=== PATIENT | female | born 1945 | race Hispanic/Latino ===

== ENCOUNTER 2018-02-20 02:33 | Inpatient (IN) | payer MEDICARE, OTHER ==
--- NOTE | 2018-02-20 02:59 | ED PDOC ---
Arrival/HPI - General Historian: Patient - History of Present Illness Symptom Onset: Gradual Symptom Course: Unchanged Activities at Onset: Light Context: Home - General Time Seen by Provider: 02/20/18 02:53 - History of Present Illness Narrative History of Present Illness (Text): 02/20/18 02:59 Flower Majano is a 73 year old female, whose past medical history includes hiatal hernia, gallstones, hypercholesterolemia, and asthma, who presents to the Emergency department complaining of abdominal pain. Patient states she has been experiencing epigastric abdominal pain radiating to her back since 20:00 yesterday. Patient reports associated nausea and vomiting. Patient denies any fever, chills, chest pain, shortness of breath, diarrhea, urinary symptoms, back pain, neck pain, headache, dizziness, or any other complaints. (Diomedes Perales) Past Medical History - Provider Review Nursing Documentation Reviewed: Yes - Infectious Disease Hx of Infectious Diseases: None - Tetanus Immunization Tetanus Immunization: Unknown - Cardiac Hx Pacemaker: No - Pulmonary Hx Respiratory Disorders: Yes Hx Asthma: Yes - Neurological Hx Paralysis: No - HEENT Hx HEENT Disorder: No - Renal Hx Renal Disorder: No - Endocrine/Metabolic Hx Endocrine Disorders: No - Hematological/Oncological Hx Blood Transfusions: No - Integumentary Hx Dermatological Disorder: No - Musculoskeletal/Rheumatological Hx Musculoskeletal Disorders: Yes - Gastrointestinal Hx Gastrointestinal Disorders: Yes (hiatal hernia ,cholelithiasis) - Genitourinary/Gynecological Hx Genitourinary Disorders: No - Psychiatric Hx Emotional Abuse: No Hx Physical Abuse: No Hx Substance Use: No - Past Surgical History Past Surgical History: Non-Contributing - Anesthesia Hx Anesthesia Reactions: No Hx Malignant Hyperthermia: No - Suicidal Assessment Feels Threatened In Home Enviroment: No Family/Social History - Physician Review Nursing Documentation Reviewed: Yes Family/Social History: Unknown Family HX Smoking Status: Never Smoked Hx Alcohol Use: No Hx Substance Use: No Hx Substance Use Treatment: No Allergies/Home Meds Allergies/Adverse Reactions: Allergies No Known Allergies Allergy (Verified 02/20/18 02:57) Home Medications: Home Meds Medication Instructions Recorded Confirmed Albuterol Sulfate [Proair Hfa] 2 puff PO Q6 PRN 01/26/14 02/20/18 Mirabegron [Myrbetriq] 50 mg PO QAM 07/14/16 02/20/18 Rosuvastatin Calcium [Crestor] 20 mg PO QPM 07/14/16 02/20/18 Review of Systems - Physician Review All systems were reviewed & negative as marked: Yes - Review of Systems Constitutional: Normal. absent: Fevers Eyes: Normal ENT: Normal Respiratory: Normal. absent: SOB, Cough Cardiovascular: Normal. absent: Chest Pain Gastrointestinal: Abdominal Pain, Nausea, Vomiting. absent: Diarrhea Genitourinary Female: Normal. absent: Dysuria, Frequency, Hematuria, Urine Output Changes Musculoskeletal: Normal. absent: Back Pain, Neck Pain Skin: Normal. absent: Rash Neurological: Normal. absent: Headache, Dizziness Endocrine: Normal Hemo/Lymphatic: Normal Psychiatric: Normal Physical Exam Vital Signs Reviewed: Yes Temperature: Afebrile Blood Pressure: Normal Pulse: Regular Respiratory Rate: Normal Appearance: Positive for: Well-Appearing, Non-Toxic, Comfortable Pain Distress: None Mental Status: Positive for: Alert and Oriented X 3 - Systems Exam Head: Present: Atraumatic, Normocephalic Pupils: Present: PERRL Extroacular Muscles: Present: EOMI Conjunctiva: Present: Normal Mouth: Present: Moist Mucous Membranes Neck: Present: Normal Range of Motion Respiratory/Chest: Present: Clear to Auscultation, Good Air Exchange. No: Respiratory Distress, Accessory Muscle Use Cardiovascular: Present: Regular Rate and Rhythm, Normal S1, S2. No: Murmurs Abdomen: Present: Tenderness (Epigastric tenderness). No: Distention, Peritoneal Signs Back: Present: Normal Inspection Upper Extremity: Present: Normal Inspection. No: Cyanosis, Edema Lower Extremity: Present: Normal Inspection. No: Edema Neurological: Present: GCS=15, CN II-XII Intact, Speech Normal Skin: Present: Warm, Dry, Normal Color. 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 Plan: -- EKG -- Labs, cardiac enzymes, amylase, lipase -- Urinalysis -- IV fluids -- Zofran -- Protonix -- Reassess and disposition Progress Notes: Reviewed EKG, NSR at [address] bpm[address] Non-specific ST/T wave changes. 02/20/18 06:54 Reviewed radiology, CT Abdomen and Pelvis shows: Lung bases: Unremarkable. No mass. No consolidation. Mediastinum: There is a hiatal hernia. ABDOMEN: Liver: Unremarkable. Gallbladder and bile ducts: There is cholelithiasis. No ductal dilation. Pancreas: Unremarkable. No ductal dilation. Spleen: There is accessory splenic tissue. Adrenals: Unremarkable. No mass. Kidneys and ureters: Unremarkable. No obstructing stones. No hydronephrosis. Stomach and bowel: Unremarkable. No obstruction. No mucosal thickening. PELVIS: Appendix: No findings to suggest acute appendicitis. Bladder: Unremarkable. No stones. Reproductive: Unremarkable as visualized. ABDOMEN and PELVIS: Intraperitoneal space: Unremarkable. No free air. No significant fluid collection. Bones/joints: No acute fracture. No dislocation. Soft tissues: Unremarkable. Vasculature: Unremarkable. No abdominal aortic aneurysm. Lymph nodes: Unremarkable. No enlarged lymph nodes. IMPRESSION: There is cholelithiasis. Clinical findings will determine the need for further evaluation with gallbladder ultrasound. If patient's symptoms persist and/or worsen, postcontrast CT imaging would be recommended. US Gallbladder ordered. (Diomedes Perales) - Lab Interpretations Lab Results: 02/20/18 03:36 02/20/18 03:36 Lab Results 02/20/18 03:36: Sodium 143, Potassium 3.8, Chloride 104, Carbon Dioxide 27, Anion Gap 15, BUN 22 H, Creatinine 0.6 L, Est GFR ( Amer) > 60, Est GFR ( Non-Af Amer) > 60, Random Glucose 133 H, Calcium 9.2, Total Bilirubin 0.8, AST 28, ALT 36, Alkaline Phosphatase 58, Lactate Dehydrogenase 448, Total Creatine Kinase 83, Troponin I < 0.01, Total Protein 7.2, Albumin 4.4, Globulin 2.8, Albumin/Globulin Ratio 1.5, Amylase 74, Lipase 60 02/20/18 03:36: Urine Color Yellow, Urine Appearance Sl cloudy, Urine pH 6.0, Ur Specific [place] >= 1.030, Urine Protein Trace H, Urine Glucose (UA) Negative , Urine Ketones Negative, Urine Blood Moderate H, Urine Nitrate Negative, Urine Bilirubin Negative, Urine Urobilinogen 0.2, Ur Leukocyte Esterase Negative, Urine RBC 2 - 5, Urine WBC 0 - 2, Ur Epithelial Cells 3 - 4, Urine Other Mucus 02/20/18 03:36: PT 11.9, INR 1.04, APTT 29.2 02/20/18 03:36: WBC 12.3 H D, RBC 5.10, Hgb 14.5, Hct 43.3, MCV 84.9, MCH 28.4, MCHC 33.5, RDW 13.3, Plt Count 221, MPV 10.2, Gran % 91.0 H, Lymph % (Auto) 5.7 L, [place] % (Auto) 2.3, Eos % (Auto) 0.9 L, Baso % (Auto) 0.1, Gran # 11.16 H, Lymph # (Auto) 0.7 L, [place] # (Auto) 0.3, Eos # (Auto) 0.1, Baso # (Auto) 0.01, Neutrophils % (Manual) 90 H, Band Neutrophils % 2, Lymphocytes % (Manual) 4 L, Monocytes % (Manual) 4, Platelet Evaluation Normal - RAD Interpretation Radiology Orders: 02/20/18 04:12 ABD & PELVIS W/O PO OR IV CONT [CT] Stat 02/20/18 06:57 GALL BLADDER [US] Stat - Medication Orders Current Medication Orders: Al Hydrox/Mg Hydrox/Simethicone (Maalox Plus 30 Ml) 30 ml PO Q8H PRN PRN Reason: Indigestion / Heartburn Atorvastatin Calcium (Lipitor) 80 mg PO 1800 [facility] Last Admin: 02/20/18 17:49 Dose: 80 mg Lactated Ringer's (Lactated Ringer's) 1,000 mls @ 110 mls/hr IV .Q9H6M [facility] Last Admin: 02/21/18 03:48 Dose: 110 mls/hr eMAR Start Stop Document 02/21/18 03:48 FC (Rec: 02/21/18 03:48 FC [id number]) Intravenous Solution Start Date 02/21/18 Start Time 03:48 End Date 02/21/18 Morphine Sulfate (Morphine) 4 mg IVP Q4H PRN PRN Reason: Pain, severe (8-10) Ondansetron HCl (Zofran Inj) 4 mg IVP [id number] MARIA M Oxycodone/Acetaminophen (Percocet 5/325 Mg Tab) 1 tab PO Q6H PRN PRN Reason: Pain, moderate (4-7) Stop: 02/23/18 16:16 Pantoprazole Sodium (Protonix Inj) 40 mg IVP DAILY MARIA M Sucralfate (Carafate Oral Susp) 1 gm PO 0600,1600 MARIA M Last Admin: 02/21/18 05:57 Dose: 1 gm Discontinued Medications Sodium Chloride (Sodium Chloride 0.9%) 1,000 mls @ 100 mls/hr IV .Q10H STA Stop: 02/20/18 13:02 Last Admin: 02/20/18 03:49 Dose: 100 mls/hr eMAR Start Stop Document 02/20/18 03:49 OCS (Rec: 02/20/18 03:50 [id number] Intravenous Solution Start Date 02/20/18 Start Time 03:49 Ondansetron HCl (Zofran Inj) 4 mg IVP STAT STA Stop: 02/20/18 03:04 Last Admin: 02/20/18 03:50 Dose: 4 mg IVP Administration Document 02/20/18 03:50 OCS (Rec: 02/20/18 03:50 [facility] [id number] Charges for Administration # of IVP Administrations 1 Oxycodone/Acetaminophen (Percocet 5/325 Mg Tab) 1 tab PO STAT STA Stop: 02/20/18 09:44 Last Admin: 02/20/18 11:38 Dose: 1 tab MAR Pain Assessment Document 02/20/18 11:38 OCS (Rec: 02/20/18 11:38 [id number] Pain Reassessment Is this a pain reassessment? No Sleep Is patient sleeping during reassessment? No Presence of Pain Presence of Pain Yes Pain Scale Used Pain Scale Used Numeric Location Pain Location Body Site Abdomen Description Description Constant Intensity of Pain at present 9 Re-Assess: MONA Pain Assessment Document 02/20/18 12:38 RV (Rec: 02/20/18 17:51 RV [id number]) Pain Reassessment Is this a pain reassessment? Yes Sleep Is patient sleeping during reassessment? No Presence of Pain Presence of Pain No Pantoprazole Sodium (Protonix Inj) 40 mg IVP ONCE STA Stop: 02/20/18 03:05 Last Admin: 02/20/18 03:50 Dose: 40 mg IVP Administration Document 02/20/18 03:50 OCS (Rec: 02/20/18 03:50 [id number] Charges for Administration # of IVP Administrations 1 Pneumococcal Polyvalent Vaccine (Pneumovax 23 Vaccine) 0.5 ml IM .ONCE ONE Stop: 02/20/18 21:26 Sucralfate (Carafate Oral Susp) 1 gm PO ONCE ONE Stop: 02/21/18 17:02 Sucralfate (Carafate Oral Susp) 1 gm PO STAT STA Stop: 02/20/18 17:05 Last Admin: 02/20/18 17:41 Dose: 1 gm - Scribe Statement The provider has reviewed the documentation as recorded by the Scribe - Scribe Statement Ebony Mckeon Provider Scribe Attestation: All medical record entries made by the Scribe were at my direction and personally dictated by me. I have reviewed the chart and agree that the record accurately reflects my personal performance of the history, physical exam, medical decision making, and the department course for this patient. I have also personally directed, reviewed, and agree with the discharge instructions and disposition. (Diomedes Perales) Disposition/Present on Arrival - Present on Arrival Any Indicators Present on Arrival: No History of DVT/PE: No History of Uncontrolled Diabetes: No Urinary Catheter: No History Surgical Site Infection Following: None - Disposition Have Diagnosis and Disposition been Completed?: Yes Disposition Time: 07:00 - Disposition Diagnosis: Intractable nausea and vomiting, Intractable epigastric abdominal pain, Biliary colic Disposition: HOSPITALIZED Patient Problems: Current Active Problems Problem Status Onset Biliary colic Acute Intractable epigastric abdominal pain Acute Intractable nausea and vomiting Acute Condition: STABLE
[2018-02-20 03:00] VITALS: BMI 25.0
[2018-02-20] MEDS ORDERED: Sodium Chloride 0.9% 1,000 ML IV STA (03:03)
[2018-02-20 04:02] LABS: URINE BILIRUBIN NEGATIVE (NEGATIVE); URINE BLOOD MODERATE (NEGATIVE); URINE GLUCOSE (UA) NEGATIVE (NEGATIVE); URINE LEUKOCYTE ESTERASE NEGATIVE Leu/uL (NEGATIVE); URINE PROTEIN TRACE mg/dL (<30 mg/dL); URINE UROBILINOGEN 0.2 E.U./dL (<1 E.U./dL)
[2018-02-20 04:04] LABS: INR 1.04 (0.93-1.08); PARTIAL THROMBOPLASTIN TIME 29.2 Seconds (25.1-36.5); PROTHROMBIN TIME 11.9 SECONDS (9.4-12.5)
[2018-02-20 04:05] LABS: ALB/GLOB RATIO 1.5 (1.1-1.8); ALBUMIN 4.4 g/dL (3.0-4.8); ALT/SGPT 36 U/L (7-56); AMYLASE 74 U/L (35-125); AST/SGOT 28 U/L (14-36); BLOOD UREA NITROGEN 22 mg/dL (7-21); CALCIUM 9.2 mg/dL (8.4-10.5); GFR AFRICAN-AMERICAN > 60; GFR NON-AFRICAN AMERICAN > 60; LIPASE 60 U/L (23-300); URINE APPEARANCE SL CLOUDY (CLEAR); URINE COLOR YELLOW (YELLOW)
[2018-02-20 04:16] LABS: TROPONIN I < 0.01 ng/mL
[2018-02-20 04:17] LABS: URINE WBC 0 - 2 /hpf (0-6)
[2018-02-20 04:39] LABS: BASO # 0.01 K/mm3 (0.0-2.0); BASO % 0.1 % (0.0-3.0); EOS # 0.1 (0.0-0.7); EOS % 0.9 % (1.5-5.0); GRAN # 11.16 (1.4-6.5); HEMOGLOBIN 14.5 g/dL (12.0-16.0); LYMPH # 0.7 (1.2-3.4); LYMPH % 5.7 % (22.0-35.0); MEAN CELL VOLUME 84.9 fl (80.0-105.0); MEAN CORPUSCULAR HEMOGLOBIN 28.4 pg (25.0-35.0); MEAN CORPUSCULAR HGB CONC 33.5 g/dl (31.0-37.0); MEAN PLATELET VOLUME 10.2 fl (7.0-11.0); MONO # 0.3 (0.1-0.6); MONO % 2.3 % (1.0-6.0); PLATELET COUNT 221 10^3/uL (120.0-450.0); RED CELL DISTRIBUTION WIDTH 13.3 % (11.5-14.5); WHITE BLOOD COUNT 12.3 10^3/ul (4.5-11.0)
[2018-02-20 06:05] LABS: BAND 2 % (0-2); LYMPHOCYTE 4 % (22.0-35.0); MONOCYTE 4 % (1.0-6.0); NEUTROPHIL 90 % (50.0-70.0); PLATELET ESTIMATE NORMAL (NORMAL)
--- NOTE | 2018-02-20 06:52 | CT ---
EXAM: CT Abdomen and Pelvis Without Intravenous Contrast CLINICAL HISTORY: 73 years old, female; Pain; Abdominal pain; Additional info: Abd pain TECHNIQUE: Axial computed tomography images of the abdomen and pelvis without intravenous contrast. All CT scans at this facility use one or more dose reduction techniques, viz.: automated exposure control; ma/kV adjustment per patient size (including targeted exams where dose is matched to indication; i.e. head); or iterative reconstruction technique. Coronal and sagittal reformatted images were created and reviewed. COMPARISON: US - RENAL 2017-02-25 09:15 FINDINGS: Lung bases: Unremarkable. No mass. No consolidation. Mediastinum: There is a hiatal hernia. ABDOMEN: Liver: Unremarkable. Gallbladder and bile ducts: There is cholelithiasis. No ductal dilation. Pancreas: Unremarkable. No ductal dilation. Spleen: There is accessory splenic tissue. Adrenals: Unremarkable. No mass. Kidneys and ureters: Unremarkable. No obstructing stones. No hydronephrosis. Stomach and bowel: Unremarkable. No obstruction. No mucosal thickening. PELVIS: Appendix: No findings to suggest acute appendicitis. Bladder: Unremarkable. No stones. Reproductive: Unremarkable as visualized. ABDOMEN and PELVIS: Intraperitoneal space: Unremarkable. No free air. No significant fluid collection. Bones/joints: No acute fracture. No dislocation. Soft tissues: Unremarkable. Vasculature: Unremarkable. No abdominal aortic aneurysm. Lymph nodes: Unremarkable. No enlarged lymph nodes. IMPRESSION: There is cholelithiasis. Clinical findings will determine the need for further evaluation with gallbladder ultrasound. If patient's symptoms persist and/or worsen, postcontrast CT imaging would be recommended.
--- NOTE | 2018-02-20 07:34 | ED PDOC ---
Physical Exam - Physical Exam Narrative Physical Exam (Text): 02/20/18 0830 General: alert/awake, GCS = 15, oriented x 3, resting in bed, uncomfortable, cooperative, interactive; NAD Head: NC/AT EYE: PERRLA, EOMI, sclera anicteric, no nystagmus, no photophobia; visual field intact b/l Facial: WNL Oral: uvula/tongue are midline, no exudate/lesions, no drooling/stridor, no dysphonia; intact dentitions NECK: intact ROM, no midline tenderness, no nuchal rigidity, no meningeal signs ; no step off Chest: CTA b/l, no w/r/r; no tachypenia, no accessory muscle use noted Cardiac: +S1, +S2, no m/r/r, no tachycardia Abdominal: +BS, soft/nd, + mid/right upper abd tenderness, well nourished patient; no masses/rebound/guarding/rigidity; no sánchez's sign, no mcburney's point tenderness Extremities: intact ROM, strength 5/5 grossly intact in all limbs, neurovasc intact b/l; + ambulatory; reflex +2/2; no pitting edema/swelling b/l; no Kiya' s sign b/l BACK: no step off, no midline tenderness, NO crepitus, no gross deformities noted; Intact ROM; no cvat b/l SKIN: cap refill < 1 sec, no ulcerations, no petechiae, no rashes NEURO: CNII-XII WNL, no facial asymmetries, no slurr speech, oriented x 3 NIH stroke scale ~ 0 Psych: normal insight, normal affect; follows command with ease Vital Signs Reviewed: Yes Vital Signs Temp Pulse Resp BP Pulse Ox 02/20/18 13:47 71 18 122/64 96 02/20/18 11:20 79 18 126/69 96 02/20/18 10:15 98.5 F 88 16 128/74 95 02/20/18 08:13 93 H 18 125/83 95 02/20/18 02:55 99.0 F 101 H 18 128/84 96 Temperature: Afebrile Blood Pressure: Normal Pulse: Tachycardic Respiratory Rate: Normal Appearance: Positive for: Well-Appearing, Non-Toxic, Uncomfortable. No: Comfortable, Ill-Appearing, Unkept Pain Distress: None Mental Status: Positive for: Alert and Oriented X 3 - Systems Exam Head: Present: Atraumatic, Normocephalic Medical Decision Making ED Course and Treatment: 02/20/18 07:00 Case signed out to me by Dr. Perales. Patient is a 73 year old female, whose past medical history includes hiatal hernia, gallstones, hypercholesterolemia, and asthma, who presents to the Emergency department complaining of abdominal pain. Currently awaiting ultrasound results and reevaluation. Dr. Perales felt patient should be admitted. 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 1200 surg team at bedside, evaluated patient, recommend po challenge with a meal and if pt successfully passed, pt can be discharged home; if pt has worse pain/ persistent vomiting, pt should be recommended for admission 02/20/18 14:24 On reevaluation, after a meal challenge, patient states she feels terrible, nauseous, and vomited, although no one can confirm patient vomiting. spoke to surgery team, made aware, will admit patient to their service; NO ABX recommended currently pt is made aware of her medical results agrees with admission Re-evaluation Time: 09:42 Reassessment Condition: Improving,but remains with symptoms - Lab Interpretations Lab Results: 02/20/18 03:36 02/20/18 03:36 Lab Results 02/20/18 03:36: Sodium 143, Potassium 3.8, Chloride 104, Carbon Dioxide 27, Anion Gap 15, BUN 22 H, Creatinine 0.6 L, Est GFR ( Amer) > 60, Est GFR ( Non-Af Amer) > 60, Random Glucose 133 H, Calcium 9.2, Total Bilirubin 0.8, AST 28, ALT 36, Alkaline Phosphatase 58, Lactate Dehydrogenase 448, Total Creatine Kinase 83, Troponin I < 0.01, Total Protein 7.2, Albumin 4.4, Globulin 2.8, Albumin/Globulin Ratio 1.5, Amylase 74, Lipase 60 02/20/18 03:36: Urine Color Yellow, Urine Appearance Sl cloudy, Urine pH 6.0, Ur Specific [place] >= 1.030, Urine Protein Trace H, Urine Glucose (UA) Negative , Urine Ketones Negative, Urine Blood Moderate H, Urine Nitrate Negative, Urine Bilirubin Negative, Urine Urobilinogen 0.2, Ur Leukocyte Esterase Negative, Urine RBC 2 - 5, Urine WBC 0 - 2, Ur Epithelial Cells 3 - 4, Urine Other Mucus 02/20/18 03:36: PT 11.9, INR 1.04, APTT 29.2 02/20/18 03:36: WBC 12.3 H D, RBC 5.10, Hgb 14.5, Hct 43.3, MCV 84.9, MCH 28.4, MCHC 33.5, RDW 13.3, Plt Count 221, MPV 10.2, Gran % 91.0 H, Lymph % (Auto) 5.7 L, [place] % (Auto) 2.3, Eos % (Auto) 0.9 L, Baso % (Auto) 0.1, Gran # 11.16 H, Lymph # (Auto) 0.7 L, [place] # (Auto) 0.3, Eos # (Auto) 0.1, Baso # (Auto) 0.01, Neutrophils % (Manual) 90 H, Band Neutrophils % 2, Lymphocytes % (Manual) 4 L, Monocytes % (Manual) 4, Platelet Evaluation Normal I have reviewed the lab results: Yes Interpretation: Abnormal lab values (+ hematuria?; mildly elevated) - RAD Interpretation Narrative RAD Interpretations (Text): 02/20/18 07:45 Ultrasound abdomen: Creator : ELÍAS JAQUEZ FINDINGS: Liver: The liver is mildly echogenic. This can be seen in the setting of fatty infiltration, hepatitis, cirrhosis, as well as other possibilities, please correlate clinically. Gallbladder: There is cholelithiasis. There is no Sánchez's sign. Common bile duct: The common bile duct measures 6 mm. Pancreas: The pancreas is not adequately evaluated due to obscuring bowel gas. Right kidney: Right kidney 11.1 cm. IMPRESSION: 1. There is cholelithiasis. There is no Sánchez's sign. 2. The liver is mildly echogenic. This can be seen in the setting of fatty infiltration, hepatitis, cirrhosis, as well as other possibilities, please correlate clinically. 02/20/18 09:43 CT Scan ABD PELVIS W/O PO OR IV CONT Exam Date: 02/20/18 This imaging exam was performed at [facility] EXAM: CT Abdomen and Pelvis Without Intravenous Contrast CLINICAL HISTORY: 73 years old, female; Pain; Abdominal pain; Additional info: Abd pain TECHNIQUE: Axial computed tomography images of the abdomen and pelvis without intravenous contrast. All CT scans at this facility use one or more dose reduction techniques, viz.: automated exposure control; ma/kV adjustment per patient size (including targeted exams where dose is matched to indication; i.e. head); or iterative reconstruction technique. Coronal and sagittal reformatted images were created and reviewed. COMPARISON: US - RENAL 2017-02-25 09:15 FINDINGS: Lung bases: Unremarkable. No mass. No consolidation. Mediastinum: There is a hiatal hernia. ABDOMEN: Liver: Unremarkable. Gallbladder and bile ducts: There is cholelithiasis. No ductal dilation. Pancreas: Unremarkable. No ductal dilation. Spleen: There is accessory splenic tissue. Adrenals: Unremarkable. No mass. Kidneys and ureters: Unremarkable. No obstructing stones. No hydronephrosis. Stomach and bowel: Unremarkable. No obstruction. No mucosal thickening. PELVIS: Appendix: No findings to suggest acute appendicitis. Bladder: Unremarkable. No stones. Reproductive: Unremarkable as visualized. ABDOMEN and PELVIS: Intraperitoneal space: Unremarkable. No free air. No significant fluid collection. Bones/joints: No acute fracture. No dislocation. Soft tissues: Unremarkable. Vasculature: Unremarkable. No abdominal aortic aneurysm. Lymph nodes: Unremarkable. No enlarged lymph nodes. IMPRESSION: There is cholelithiasis. Clinical findings will determine the need for further evaluation with gallbladder ultrasound. If patient's symptoms persist and/or worsen, postcontrast CT imaging would be recommended. 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 - Medication Orders Current Medication Orders: Discontinued Medications Sodium Chloride (Sodium Chloride 0.9%) 1,000 mls @ 100 mls/hr IV .Q10H STA Stop: 02/20/18 13:02 Last Admin: 02/20/18 03:49 Dose: 100 mls/hr eMAR Start Stop Document 02/20/18 03:49 OCS (Rec: 02/20/18 03:50 [facility] Intravenous Solution Start Date 02/20/18 Start Time 03:49 Ondansetron HCl (Zofran Inj) 4 mg IVP STAT STA Stop: 02/20/18 03:04 Last Admin: 02/20/18 03:50 Dose: 4 mg IVP Administration Document 02/20/18 03:50 OCS (Rec: 02/20/18 03:50 [id number] Charges for Administration # of IVP Administrations 1 Oxycodone/Acetaminophen (Percocet 5/325 Mg Tab) 1 tab PO STAT STA Stop: 02/20/18 09:44 Last Admin: 02/20/18 11:38 Dose: 1 tab MAR Pain Assessment Document 02/20/18 11:38 OCS (Rec: 02/20/18 11:38 [facility] Pain Reassessment Is this a pain reassessment? No Sleep Is patient sleeping during reassessment? No Presence of Pain Presence of Pain Yes Pain Scale Used Pain Scale Used Numeric Location Pain Location Body Site Abdomen Description Description Constant Intensity of Pain at present 9 Pantoprazole Sodium (Protonix Inj) 40 mg IVP ONCE STA Stop: 02/20/18 03:05 Last Admin: 02/20/18 03:50 Dose: 40 mg IVP Administration Document 02/20/18 03:50 OCS (Rec: 02/20/18 03:50 [facility] Charges for Administration # of IVP Administrations 1 - Scribe Statement The provider has reviewed the documentation as recorded by the Prashanth Dean Provider Scribe Attestation: All medical record entries made by the Scribe were at my direction and personally dictated by me. I have reviewed the chart and agree that the record accurately reflects my personal performance of the history, physical exam, medical decision making, and the department course for this patient. I have also personally directed, reviewed, and agree with the discharge instructions and disposition. Disposition/Present on Arrival - Present on Arrival Any Indicators Present on Arrival: No History of DVT/PE: No History of Uncontrolled Diabetes: No Urinary Catheter: No History of Decub. Ulcer: No History Surgical Site Infection Following: None - Disposition Have Diagnosis and Disposition been Completed?: Yes Diagnosis: Intractable nausea and vomiting, Intractable epigastric abdominal pain, Biliary colic Disposition: HOSPITALIZED Disposition Time: 14:35 Patient Plan: Admission Condition: STABLE Print Language: YI Referrals: Yanet Patel DO [Primary Care Provider] - Follow up with primary
--- NOTE | 2018-02-20 07:43 | US ---
EXAM: US Abdomen Limited, Right Upper Quadrant CLINICAL HISTORY: 73 years old, female; Pain; Abdominal pain; Generalized; Additional info: Abd pain TECHNIQUE: Real-time ultrasound of the right upper quadrant with image documentation. COMPARISON: US - RENAL 2017-02-25 09:15 FINDINGS: Liver: The liver is mildly echogenic. This can be seen in the setting of fatty infiltration, hepatitis, cirrhosis, as well as other possibilities, please correlate clinically. Gallbladder: There is cholelithiasis. There is no Sánchez's sign. Common bile duct: The common bile duct measures 6 mm. Pancreas: The pancreas is not adequately evaluated due to obscuring bowel gas. Right kidney: Right kidney 11.1 cm. IMPRESSION: 1. There is cholelithiasis. There is no Sánchez's sign. 2. The liver is mildly echogenic. This can be seen in the setting of fatty infiltration, hepatitis, cirrhosis, as well as other possibilities, please correlate clinically.
--- NOTE | 2018-02-20 09:28 | CARD ---
APPROVED REPORT EKG Measurement Heart [id number] <Conclusion> Normal sinus rhythm Possible Left atrial enlargement Borderline ECG
[2018-02-20] MEDS ORDERED: Oxycodone/Acetaminophen 5/325 mg Tab PO STA (09:43)
--- NOTE | 2018-02-20 12:11 | CP.PCM.CON ---
History of Present Illness - History of Present Illness History of Present Illness: Tonio Hassan PGY1 Surgery Consult Note for Dr. Esquivel Ms. Majano is a 73yo [place] female with a PMH of HLD, hiatal hernia, asthma and arthritis who presents with epigastric/RUQ pain that began last night around 8pm and worsened which led her to come to ED; patient also complained of 5 episodes of vomiting that was described as dark, and diarrhea. Translation was offered by her friend via phone. Patient states that she has similar pain usually after eating but denies symptoms of this severity or vomiting before. She states that she attends an adult day care center and that the food is not usually the healthiest. She denies fevers/chills, chest pain, shortness of breath, constipation or weight loss/gain. 12-pt ROS was reviewed and is otherwise unremarkable. Prior Endoscopies (2015) were significant for diffuse mild inflammation in gastric fundus, body and antrum and chronic gastritis on pathology; as well as 8mm sessile polyp, and internal hemorrhoids. In the ED, patient received protonix and zofran which significantly reduced the pain. When seen, the patient was comfortable and states that her pain has almost completely resolved, and that it's mainly associated with her food. The patient presented a card for a GI appointment with Dr. Garza for March 2018. Patient also states that she's traveling to [facility] on 03/25/18 and would prefer to not have surgery prior to that time. PMH: as above PSH: none Meds: Crestor ALL: NKDA SHx: denies smoking, ETOH, or drug use; goes to adult day care center ) Review of Systems - Review of Systems All systems: reviewed and no additional remarkable complaints except (as per HPI ) Past Patient History - Infectious Disease Hx of Infectious Diseases: None - Tetanus Immunizations Tetanus Immunization: Unknown - Past Medical History & Family History Past Medical History?: Yes Past Family History: Reviewed and not pertinent - Past Social History Smoking Status: Never Smoked Alcohol: None Drugs: Denies - CARDIAC Hx Hypercholesterolemia: Yes Hx Pacemaker: No - PULMONARY Hx Respiratory Disorders: Yes Hx Asthma: Yes - NEUROLOGICAL Hx Neurological Disorder: No Hx Paralysis: No - HEENT Hx HEENT Problems: No - RENAL Hx Chronic Kidney Disease: No - ENDOCRINE/METABOLIC Hx Endocrine Disorders: No - HEMATOLOGICAL/ONCOLOGICAL Hx Blood Transfusions: No - INTEGUMENTARY Hx Dermatological Problems: No - MUSCULOSKELETAL/RHEUMATOLOGICAL Hx Musculoskeletal Disorders: Yes Hx Arthritis: Yes - GASTROINTESTINAL Hx Gastrointestinal Disorders: Yes (hiatal hernia ,cholelithiasis) - GENITOURINARY/GYNECOLOGICAL Hx Genitourinary Disorders: No - PSYCHIATRIC Hx Emotional Abuse: No Hx Physical Abuse: No Hx Substance Use: No - SURGICAL HISTORY Hx Surgeries: No - ANESTHESIA Hx Anesthesia Reactions: No Hx Malignant Hyperthermia: No Meds Allergies/Adverse Reactions: Allergies Allergy/AdvReac Type Severity Reaction Status Date / Time No Known Allergies Allergy Verified 02/20/18 02:57 - Medications Medications: Current Medications Sodium Chloride (Sodium Chloride 0.9%) 1,000 mls @ 100 mls/hr IV .Q10H STA Stop: 02/20/18 13:02 Last Admin: 02/20/18 03:49 Dose: 100 mls/hr Physical Exam - Constitutional Appears: Well, Non-toxic, No Acute Distress - Head Exam Head Exam: NORMAL INSPECTION - Eye Exam Eye Exam: Normal appearance - ENT Exam ENT Exam: Mucous Membranes Moist - Neck Exam Neck exam: Positive for: Normal Inspection - Respiratory Exam Respiratory Exam: NORMAL BREATHING PATTERN. absent: Wheezes - Cardiovascular Exam Cardiovascular Exam: RRR, +S1, +S2 - GI/Abdominal Exam GI & Abdominal Exam: Normal Bowel Sounds, Soft, Tenderness (RLQ mild). absent: Distended, Guarding - Extremities Exam Extremities exam: Positive for: normal inspection - Back Exam Back exam: NORMAL INSPECTION - Neurological Exam Neurological exam: Alert - Psychiatric Exam Psychiatric exam: Normal Affect, Normal Mood - Skin Skin Exam: Normal Color Results - Vital Signs Recent Vital Signs: Last Vital Signs Temp 98.5 F 02/20/18 10:15 Pulse 79 02/20/18 11:20 Resp 18 02/20/18 11:20 BP 126/69 02/20/18 11:20 Pulse Ox 96 02/20/18 11:20 - Labs Result Diagrams: 02/20/18 03:36 02/20/18 03:36 Labs: Laboratory Results - last 24 hr 02/20/18 02/20/18 02/20/18 03:36 03:36 03:36 WBC 12.3 H D RBC 5.10 Hgb 14.5 Hct 43.3 MCV 84.9 MCH 28.4 MCHC 33.5 RDW 13.3 Plt Count 221 MPV 10.2 Gran % 91.0 H Lymph % (Auto) 5.7 L [place] % (Auto) 2.3 Eos % (Auto) 0.9 L Baso % (Auto) 0.1 Gran # 11.16 H Lymph # (Auto) 0.7 L [place] # (Auto) 0.3 Eos # (Auto) 0.1 Baso # (Auto) 0.01 Neutrophils % (Manual) 90 H Band Neutrophils % 2 Lymphocytes % (Manual) 4 L Monocytes % (Manual) 4 Platelet Evaluation Normal PT 11.9 INR 1.04 APTT 29.2 Sodium Potassium Chloride Carbon Dioxide Anion Gap BUN Creatinine Est GFR ( Amer) Est GFR (Non-Af Amer) Random Glucose Calcium Total Bilirubin AST ALT Alkaline Phosphatase Lactate Dehydrogenase Total Creatine Kinase Troponin I Total Protein Albumin Globulin Albumin/Globulin Ratio Amylase Lipase Urine Color Yellow Urine Appearance Sl cloudy Urine pH 6.0 Ur Specific [place] >= 1.030 Urine Protein Trace H Urine Glucose (UA) Negative Urine Ketones Negative Urine Blood Moderate H Urine Nitrate Negative Urine Bilirubin Negative Urine Urobilinogen 0.2 Ur Leukocyte Esterase Negative Urine RBC 2 - 5 Urine WBC 0 - 2 Ur Epithelial Cells 3 - 4 Urine Other Mucus 02/20/18 03:36 WBC RBC Hgb Hct MCV MCH MCHC RDW Plt Count MPV Gran % Lymph % (Auto) [place] % (Auto) Eos % (Auto) Baso % (Auto) Gran # Lymph # (Auto) [place] # (Auto) Eos # (Auto) Baso # (Auto) Neutrophils % (Manual) Band Neutrophils % Lymphocytes % (Manual) Monocytes % (Manual) Platelet Evaluation PT INR APTT Sodium 143 Potassium 3.8 Chloride 104 Carbon Dioxide 27 Anion Gap 15 BUN 22 H Creatinine 0.6 L Est GFR ( Amer) > 60 Est GFR (Non-Af Amer) > 60 Random Glucose 133 H Calcium 9.2 Total Bilirubin 0.8 AST 28 ALT 36 Alkaline Phosphatase 58 Lactate Dehydrogenase 448 Total Creatine Kinase 83 Troponin I < 0.01 Total Protein 7.2 Albumin 4.4 Globulin 2.8 Albumin/Globulin Ratio 1.5 Amylase 74 Lipase 60 Urine Color Urine Appearance Urine pH Ur Specific [place] Urine Protein Urine Glucose (UA) Urine Ketones Urine Blood Urine Nitrate Urine Bilirubin Urine Urobilinogen Ur Leukocyte Esterase Urine RBC Urine WBC Ur Epithelial Cells Urine Other Assessment & Plan - Assessment and Plan (Free Text) Assessment: 73yo [place] female with a PMH of HLD, hiatal hernia, asthma and arthritis who presents with epigastric/RUQ pain associated with vomiting. CT abd and US showed cholelithiasis, fatty liver but no barajas's sign Plan: advance diet and check if tolerating zofran prn cont ptx, and pt should continue them as outpatient patient is cleared for d/c if tolerating diet patient should follow up with Dr. Esquivel for elective cholecystectomy please avoid fatty foods please follow up with PMD on d/c Case was discussed and reviewed with Dr. Esquivel
[2018-02-20] MEDS ORDERED: Morphine 4 mg/ml ISec IVP PRN (16:01)
[2018-02-20] MEDS ORDERED: Oxycodone/Acetaminophen 5/325 mg Tab PO PRN (16:01)
[2018-02-20] MEDS: Lactated Ringer's 1,000 ML IV SCH (17:00)
[2018-02-20] MEDS ORDERED: Sucralfate 1 gm/10 ml Oral Susp UD PO STA (17:04)
--- NOTE | 2018-02-20 17:17 | CP.PCM.HP ---
<Pinky Mullins - Last Filed: 02/20/18 18:19> History of Present Illness - History of Present Illness History of Present Illness: Pinky Mullins DO PGY1 - IM H&P for Dr. Nichols CC: Abdominal pain, nausea, vomiting for the past day HPI: 73yo [place] female with a PMH of gastritis, HLD, hiatal hernia, asthma and arthritis who presents with abdominal pain, nausea, and vomiting that started last night, and progressively worsened which led her to come to the ER. She also admits to two episodes of non-bloody diarrhea. She had several episodes of vomiting, that first brought up the food she had previously eaten, then "yellow sour stuff" then "dark bitter stuff". She also reports some episodes of vomiting since presenting to the ER, though unwitnessed. Her abdominal pain is intermittent, diffuse, mostly in RUQ, happens randomly, not specifically associated with meals, radiates around the side and to the back. She has had this same pain for many years. She also admits to early satiety, bloating, frequent belching, sour stomach, "sour" reflux. She denies heartburn. She also denies fever, chills, constipation, chest pain, shortness of breath, difficulty swallowing, weight changes. Remained of 12 point ROS was obtained as was negative. Currently, she denies any pain, nausea, or vomiting. She reports that she has no appetite, despite not eating anything all day. PMH: gastritis, HLD, hiatal hernia, asthma and arthritis PSH: none Meds: Crestor; was previously prescribed a PPI and Myrbetric but decided that since it was the summer, she should take a break from her medications ALL: NKDA SHx: denies smoking, ETOH, or drug use; goes to adult day care center ([phone]) Present on Admission - Present on Admission Any Indicators Present on Admission: No Past Patient History - Infectious Disease Hx of Infectious Diseases: None - Tetanus Immunizations Tetanus Immunization: Unknown - Past Medical History & Family History Past Medical History?: Yes Past Family History: Reviewed and not pertinent - Past Social History Smoking Status: Never Smoked Alcohol: None Drugs: Denies - CARDIAC Hx Hypercholesterolemia: Yes Hx Pacemaker: No - PULMONARY Hx Respiratory Disorders: Yes Hx Asthma: Yes - NEUROLOGICAL Hx Neurological Disorder: No Hx Paralysis: No - HEENT Hx HEENT Problems: No - RENAL Hx Chronic Kidney Disease: No - ENDOCRINE/METABOLIC Hx Endocrine Disorders: No - HEMATOLOGICAL/ONCOLOGICAL Hx Blood Transfusions: No - INTEGUMENTARY Hx Dermatological Problems: No - MUSCULOSKELETAL/RHEUMATOLOGICAL Hx Musculoskeletal Disorders: Yes Hx Arthritis: Yes - GASTROINTESTINAL Hx Gastrointestinal Disorders: Yes (hiatal hernia ,cholelithiasis) - GENITOURINARY/GYNECOLOGICAL Hx Genitourinary Disorders: No - PSYCHIATRIC Hx Emotional Abuse: No Hx Physical Abuse: No Hx Substance Use: No - SURGICAL HISTORY Hx Surgeries: No - ANESTHESIA Hx Anesthesia Reactions: No Hx Malignant Hyperthermia: No Meds Allergies/Adverse Reactions: Allergies Allergy/AdvReac Type Severity Reaction Status Date / Time UNKNOWN ANTIBIOTICS Allergy REDNESS Uncoded 02/23/18 13:55 Physical Exam - Constitutional Appears: Non-toxic, No Acute Distress - Head Exam Head Exam: ATRAUMATIC, NORMOCEPHALIC - Eye Exam Eye Exam: EOMI, Normal appearance, PERRL - ENT Exam ENT Exam: Mucous Membranes Moist - Neck Exam Neck exam: Positive for: Normal Inspection - Respiratory Exam Respiratory Exam: Clear to Auscultation Bilateral, NORMAL BREATHING PATTERN - Cardiovascular Exam Cardiovascular Exam: REGULAR RHYTHM, +S1, +S2. absent: Bradycardia, Tachycardia - GI/Abdominal Exam GI & Abdominal Exam: Normal Bowel Sounds, Soft. absent: Distended, Firm, Guarding, Hernia, Rebound, Rigid, Tenderness Additional comments: Minimal tenderness to very deep palpation in RUQ - Extremities Exam Extremities exam: Negative for: calf tenderness, pedal edema - Back Exam Back exam: absent: CVA tenderness (L), CVA tenderness (R) - Neurological Exam Neurological exam: Alert, CN II-XII Intact, Oriented x3 - Psychiatric Exam Psychiatric exam: Normal Affect, Normal Mood - Skin Skin Exam: Dry, Intact, Normal Color Results - Vital Signs Recent Vital Signs: Last Vital Signs Temp 98.5 F 02/20/18 16:15 Pulse 68 02/20/18 16:15 Resp 18 02/20/18 16:15 BP 118/61 02/20/18 16:15 Pulse Ox 96 02/20/18 16:15 - Labs Result Diagrams: 02/20/18 03:36 02/20/18 03:36 Assessment & Plan - Assessment and Plan (Free Text) Assessment: 73 yo F with PMH of gastritis, HLD, hiatal hernia, asthma and arthritis who presents with abdominal pain, nausea, and vomiting. Likely secondary to symptomatic cholelithiasis vs gastritis. Abdominal pain, nausea, and vomiting - Likely 2/2 symptomatic cholelithiasis vs gastritis - CT scan and abdominal US shows cholelithiasis, without cholecystitis - Prior endoscopy report (2016) shows diffuse gastritis without ulceration; biopsy showed mild chronic gastritis - Patient has had intermittent RUQ abdominal pain, characteristic of symptomatic cholelithiasis, for many years - Clear liquid diet - Protonix 40mg IV daily - Carafate BID - Maalox Q8 PRN for indigestion - Pain control - Antiemetics for nausea - Patient was seen by surgery in the ER, who advised cholecystectomy tomorrow; patient will be NPO after midnight h/o HLD - Resume home crestor DVT Ppx: SCDs Patient seen and case discussed with attending Dr. Nichols <Renetta Nichols - Last Filed: 02/25/18 16:10> Results - Vital Signs Recent Vital Signs: Last Vital Signs Temp 98.7 F 02/23/18 06:00 Pulse 88 02/23/18 06:00 Resp 20 02/23/18 06:00 BP 131/88 02/23/18 06:00 Pulse Ox 95 02/23/18 06:00 - Labs Result Diagrams: 02/22/18 08:10 02/23/18 09:30 Attending/Attestation - Attestation I have personally seen and examined this patient.: Yes I have fully participated in the care of the patient.: Yes I have reviewed all pertinent clinical information: Yes Notes (Text): 02/25/18 16:08 Medical record note made by the resident after discussion with my direction and input after the patient was personally seen and examined by me. I have reviewed the chart and agree that the record accurately reflects by personal performance of the history, physical exam, data review, and medical decision-making, in the course for the patient. I have also personally directed the plan of care. 73 years old Female with PMH of Galls tone,hyperlipidemia,asthma is admitted with biliary colic, USG galls tone, there is evidence of no cholecystitis, We will start patient on clear liquid diet, we will consult surgery, if recurrent pain, will need inpatient cholecystectomy. Management plan was discussed in detail with patient. Education was provided.
[2018-02-20] MEDS ORDERED: Non Formulary Medication (Rosuvastatin Calcium [Crestor] 20 MG) PO SCH (18:00)
[2018-02-20] MEDS ORDERED: Alum-Mag Hydrox-Simethicone Susp (30 mL) PO PRN (18:18)
[2018-02-20] MEDS ORDERED: Pneumococcal 23-Valent Vaccine IM ONE (21:25)
[2018-02-21] MEDS: Lactated Ringer's 1,000 ML IV SCH ×4 (03:48→19:35)
[2018-02-21] MEDS: Sucralfate 1 gm/10 ml Oral Susp UD PO SCH ×2 (05:57→18:30)
[2018-02-21 06:29] LABS: BASO # 0.01 K/mm3 (0.0-2.0); BASO % 0.2 % (0.0-3.0); EOS # 0.1 (0.0-0.7); EOS % 1.9 % (1.5-5.0); GRAN # 2.23 (1.4-6.5); GRAN % 46.2 % (50.0-68.0); HEMOGLOBIN 13.4 g/dL (12.0-16.0); LYMPH # 2.1 (1.2-3.4); LYMPH % 43.6 % (22.0-35.0); MEAN CELL VOLUME 86.2 fl (80.0-105.0); MEAN CORPUSCULAR HEMOGLOBIN 28.5 pg (25.0-35.0); MEAN PLATELET VOLUME 10.1 fl (7.0-11.0); MONO # 0.4 (0.1-0.6); MONO % 8.1 % (1.0-6.0); RBC 4.71 10^6/uL (3.5-6.1); RED CELL DISTRIBUTION WIDTH 13.8 % (11.5-14.5); WHITE BLOOD COUNT 4.8 10^3/ul (4.5-11.0)
[2018-02-21 07:04] LABS: ALB/GLOB RATIO 1.3 (1.1-1.8); ALBUMIN 3.6 g/dL (3.0-4.8); ALT/SGPT 31 U/L (7-56); AST/SGOT 21 U/L (14-36); BLOOD UREA NITROGEN 8 mg/dL (7-21); CALCIUM 8.9 mg/dL (8.4-10.5); GFR AFRICAN-AMERICAN > 60; GFR NON-AFRICAN AMERICAN > 60
--- NOTE | 2018-02-21 07:41 | CP.PCM.PN ---
Subjective - Date & Time of Evaluation Date of Evaluation: 02/21/18 Time of Evaluation: 07:37 - Subjective Subjective: Medicine Progress note Patient seen and examined at bedside. Afebrile overnight. No acute events. Currently NPO. No new complaints at this time. Plan for OR today w/ surgery team. Objective - Vital Signs/Intake and Output Vital Signs (last 24 hours): Temp Pulse Resp BP Pulse Ox 98.5 F 64 18 118/61 93 L 02/20/18 20:51 02/20/18 20:51 02/20/18 20:51 02/20/18 20:51 02/20/18 18:00 Intake and Output: 02/21/18 02/21/18 06:59 18:59 Intake Total 1320 Output Total 100 Balance 1220 - Medications Medications: Current Medications Al Hydrox/Mg Hydrox/Simethicone (Maalox Plus 30 Ml) 30 ml PO Q8H PRN PRN Reason: Indigestion / Heartburn Atorvastatin Calcium (Lipitor) 80 mg PO 1800 [facility] Last Admin: 02/20/18 17:49 Dose: 80 mg Lactated Ringer's (Lactated Ringer's) 1,000 mls @ 110 mls/hr IV .Q9H6M [facility] Last Admin: 02/21/18 03:48 Dose: 110 mls/hr Morphine Sulfate (Morphine) 4 mg IVP Q4H PRN PRN Reason: Pain, severe (8-10) Ondansetron HCl (Zofran Inj) 4 mg IVP [id number] [facility] Last Admin: 02/21/18 07:08 Dose: 4 mg Oxycodone/Acetaminophen (Percocet 5/325 Mg Tab) 1 tab PO Q6H PRN PRN Reason: Pain, moderate (4-7) Stop: 02/23/18 16:16 Pantoprazole Sodium (Protonix Inj) 40 mg IVP DAILY [facility] Sucralfate (Carafate Oral Susp) 1 gm PO 0600,1600 [facility] Last Admin: 02/21/18 05:57 Dose: 1 gm - Labs Labs: 02/21/18 06:00 02/21/18 06:00 PT 11.9 SECONDS (9.4-12.5) 02/20/18 03:36 INR 1.04 (0.93-1.08) 02/20/18 03:36 APTT 29.2 Seconds (25.1-36.5) 02/20/18 03:36 - Constitutional Appears: Non-toxic, No Acute Distress - Head Exam Head Exam: ATRAUMATIC - Eye Exam Eye Exam: EOMI. absent: Scleral icterus - ENT Exam ENT Exam: Mucous Membranes Moist - Respiratory Exam Respiratory Exam: NORMAL BREATHING PATTERN. absent: Accessory Muscle Use, Chest Wall Tenderness, Rales, Rhonchi, Wheezes, Respiratory Distress - Cardiovascular Exam Cardiovascular Exam: +S1, +S2. absent: Bradycardia, Tachycardia - GI/Abdominal Exam GI & Abdominal Exam: Soft, Tenderness (Tender to deep palpation in RUQ). absent : Distended, Firm, Guarding, Rigid - Extremities Exam Extremities Exam: absent: Calf Tenderness - Neurological Exam Neurological Exam: Alert, Awake, Oriented x3 - Psychiatric Exam Psychiatric exam: Normal Affect - Skin Skin Exam: Intact, Warm Assessment and Plan - Assessment and Plan (Free Text) Assessment: 73F pmhx of gastritis, HLD, hiatal hernia, asthma and arthritis who presents with symptomatic cholelithiasis and mild luekocytosis Plan: Symptomatic cholelithiasis - CT scan and abdominal US shows cholelithiasis, without cholecystitis - NPO - plan for cholecystectomy today by surgery team - cleared for OR from medical stand point - pain control PRN - IVF hx of Gastritis - 2015 endoscopy report shows diffuse gastritis w/o ulceration. Path: mild chronic gastritis - Protonix IV BID - Carafate BID - malox PRN - anti-emetic PRN hx of HLD - Resume home crestor hx of Asthma - resume home inhalers - duonebs q4 MARIA M PPX DVT: SCDs discussed w/ Dr. Jhon Colunga PGY1
[2018-02-21] MEDS ORDERED: Albuterol-Ipratrop 3 mg / 0.5 (3 ml) UD IH PRN (07:43)
[2018-02-21] MEDS: MIRABEGRON 50 MG PO SCH (09:17)
--- NOTE | 2018-02-21 10:17 | RAD ---
HISTORY: pre-op evaluation, epigastric pain COMPARISON: 10/15/2017 FINDINGS: LUNGS: No active pulmonary disease. PLEURA: No significant pleural effusion identified, no pneumothorax apparent. CARDIOVASCULAR: Normal. OSSEOUS STRUCTURES: No significant abnormalities. VISUALIZED UPPER ABDOMEN: Normal. OTHER FINDINGS: None. IMPRESSION: No active disease.
[2018-02-21] MEDS ORDERED: Bupivacaine 0.5% Inj(30mL) ONE (10:29)
[2018-02-21] MEDS ORDERED: Albuterol-Ipratrop 3 mg / 0.5 (3 ml) UD IH STA (10:32)
[2018-02-21] MEDS ORDERED: Succinylcholine 200 mg/10 ml Inj IV ONE (13:40)
[2018-02-21] MEDS ORDERED: Propofol 10 mg/ml Inj (20 ML) ONE (13:40)
[2018-02-21] MEDS ORDERED: Midazolam 2 MG/2 ML VIAL ONE (13:40)
[2018-02-21] MEDS ORDERED: Rocuronium 10 mg/ml (5 ml) ONE (13:40)
[2018-02-21] MEDS ORDERED: ePHEDrine 50 mg/ml Inj ONE (13:59)
[2018-02-21] MEDS ORDERED: Neostigmine Methylsulfate 3mg/3ml Syringe IV ONE (14:46)
[2018-02-21] MEDS ORDERED: Glycopyrrolate 0.2 mg/ml (2ml vial) ONE (14:47)
--- NOTE | 2018-02-21 15:16 | PCM.SURG1 ---
Surgeon's Initial Post Op Note - Surgeon's Notes Surgeon: Dr. Esquivel Adobe Maker: Megha Maldonado, PGY2. Bailey Mckinney PGY1 Type of Anesthesia: General Endo Pre-Operative Diagnosis: symptomatic cholelithiasis Operative Findings: normal anatomy, fibrous tissue around the gallbladder, see full operative report Post-Operative Diagnosis: same Operation Performed: laparoscopic cholecystectomy Specimen/Specimens Removed: gallbladder Estimated Blood Loss: EBL {In ML}: 5 Blood Products Given: N/A Drains Used: No Drains Post-Op Condition: Fair Date of Surgery/Procedure: 02/21/18 Time of Surgery/Procedure: 13:45
[2018-02-21] MEDS ORDERED: Morphine 4 mg/ml ISec IVP PRN (15:21)
[2018-02-21] MEDS ORDERED: Morphine 2 mg/ml ISec IVP PRN (15:28)
[2018-02-21] MEDS ORDERED: Lactated Ringer's 1,000 ML IV SCH (15:30)
[2018-02-21] MEDS ORDERED: Morphine 2 mg/2 mL syringe ONE ×4 (15:44→16:37)
[2018-02-21] MEDS ORDERED: Morphine 2 mg/2 mL syringe IVP ONE ×4 (15:44→16:37)
[2018-02-21] MEDS ORDERED: Sucralfate 1 gm/10 ml Oral Susp UD PO ONE (17:01)
[2018-02-22] MEDS: Lactated Ringer's 1,000 ML IV SCH (05:14)
[2018-02-22] MEDS: Sucralfate 1 gm/10 ml Oral Susp UD PO SCH ×2 (05:15→17:49)
[2018-02-22 08:24] LABS: BASO # 0.01 K/mm3 (0.0-2.0); BASO % 0.1 % (0.0-3.0); EOS % 0.6 % (1.5-5.0); GRAN # 4.5 (1.4-6.5); GRAN % 63.7 % (50.0-68.0); LYMPH % 28.1 % (22.0-35.0); MEAN CORPUSCULAR HEMOGLOBIN 28.3 pg (25.0-35.0); MEAN CORPUSCULAR HGB CONC 33.2 g/dl (31.0-37.0); MEAN PLATELET VOLUME 9.6 fl (7.0-11.0); MONO # 0.5 (0.1-0.6); MONO % 7.5 % (1.0-6.0); RBC 4.6 10^6/uL (3.5-6.1); RED CELL DISTRIBUTION WIDTH 13.5 % (11.5-14.5); WHITE BLOOD COUNT 7.1 10^3/ul (4.5-11.0)
--- NOTE | 2018-02-22 08:26 | CP.PCM.PN ---
Subjective - Date & Time of Evaluation Date of Evaluation: 02/22/18 Time of Evaluation: 08:24 - Subjective Subjective: General surgery progress note for Dr. Rosario Mckinney, PGY-1 Pt S & E at bedside at 0700 Pt reports some abdominal pain over surgical incision sites, right shoulder pain. Has eaten a little, but reports poor appetite. Denies N & V. No acute events overnight as per nursing. Objective - Vital Signs/Intake and Output Vital Signs (last 24 hours): Temp Pulse Resp BP Pulse Ox 97.2 F L 82 199 H 125/74 96 02/21/18 17:00 02/21/18 17:00 02/21/18 17:00 02/21/18 17:00 02/21/18 17:00 Intake and Output: 02/22/18 02/22/18 06:59 18:59 Intake Total 180 Balance 180 - Medications Medications: Current Medications Al Hydrox/Mg Hydrox/Simethicone (Maalox Plus 30 Ml) 30 ml PO Q8H PRN PRN Reason: Indigestion / Heartburn Albuterol/Ipratropium (Duoneb 3 Mg/0.5 Mg (3 Ml) Ud) 3 ml IH [id number] PRN PRN Reason: Shortness of Breath Atorvastatin Calcium (Lipitor) 80 mg PO 1800 [facility] Last Admin: 02/21/18 18:30 Dose: 80 mg Metoclopramide HCl (Reglan) 10 mg IV ONCE PRN PRN Reason: Nausea/Vomiting Mirabegron [ Myrbetriq] 50 Mg) ( Home Med) 50 mg PO QAM [facility] Last Admin: 02/21/18 09:17 Dose: Not Given Ondansetron HCl (Zofran Inj) 4 mg IVP [id number] [facility] Last Admin: 02/22/18 02:35 Dose: Not Given Oxycodone/Acetaminophen (Percocet 5/325 Mg Tab) 1 tab PO Q6H PRN PRN Reason: Pain, moderate (4-7) Stop: 02/23/18 16:16 Pantoprazole Sodium (Protonix Inj) 40 mg IVP DAILY [facility] Last Admin: 02/21/18 09:17 Dose: 40 mg Sucralfate (Carafate Oral Susp) 1 gm PO 0600,1600 [facility] Last Admin: 02/22/18 05:15 Dose: 1 gm - Labs Labs: 02/21/18 06:00 02/21/18 06:00 PT 11.9 SECONDS (9.4-12.5) 02/20/18 03:36 INR 1.04 (0.93-1.08) 02/20/18 03:36 APTT 29.2 Seconds (25.1-36.5) 02/20/18 03:36 - Constitutional Appears: Non-toxic, No Acute Distress - Head Exam Head Exam: ATRAUMATIC, NORMAL INSPECTION, NORMOCEPHALIC - Eye Exam Eye Exam: EOMI, Normal appearance - ENT Exam ENT Exam: Mucous Membranes Moist, Normal Exam - Neck Exam Neck Exam: Full ROM, Normal Inspection - Respiratory Exam Respiratory Exam: NORMAL BREATHING PATTERN - Cardiovascular Exam Cardiovascular Exam: REGULAR RHYTHM, +S1, +S2 - GI/Abdominal Exam GI & Abdominal Exam: Soft, Tenderness (over surgical incision sites). absent: Distended, Firm, Guarding, Rigid Additional comments: surgical sites with glue in place, no drainage or erythema noted - Extremities Exam Extremities Exam: Normal Inspection - Neurological Exam Neurological Exam: Alert, Awake, CN II-XII Intact, Oriented x3 - Psychiatric Exam Psychiatric exam: Normal Affect, Normal Mood - Skin Skin Exam: Dry, Intact, Normal Color, Warm Assessment and Plan - Assessment and Plan (Free Text) Assessment: 73F POD#1 s/p lap marleen Plan: OOBTC PT Pain control Anti-emetic PRN Cont reg diet Encourage IS use- please place at bedside with instructions on use as per respiratory Further mgmt as per primary team Will SILVA attending Faye, PGY-1
[2018-02-22 08:33] LABS: ALB/GLOB RATIO 1.4 (1.1-1.8); ALBUMIN 3.6 g/dL (3.0-4.8); ALT/SGPT 121 U/L (7-56); AST/SGOT 109 U/L (14-36); BLOOD UREA NITROGEN 6 mg/dL (7-21); CALCIUM 9.1 mg/dL (8.4-10.5); GFR AFRICAN-AMERICAN > 60; GFR NON-AFRICAN AMERICAN > 60
--- NOTE | 2018-02-22 09:37 | CP.PCM.PN ---
Subjective - Date & Time of Evaluation Date of Evaluation: 02/22/18 Time of Evaluation: 06:15 - Subjective Subjective: Patient seen and examined at bedside stating her pain in her abdomen has improved since the surgery. Denies shortness of breath, fevers, chills, cough, nausea, vomiting, diarrhea, headache, abdominal pain. Objective - Vital Signs/Intake and Output Vital Signs (last 24 hours): Temp Pulse Resp BP Pulse Ox 97.2 F L 82 199 H 125/74 96 02/21/18 17:00 02/21/18 17:00 02/21/18 17:00 02/21/18 17:00 02/21/18 17:00 Intake and Output: 02/22/18 02/22/18 06:59 18:59 Intake Total 180 Balance 180 - Medications Medications: Current Medications Al Hydrox/Mg Hydrox/Simethicone (Maalox Plus 30 Ml) 30 ml PO Q8H PRN PRN Reason: Indigestion / Heartburn Albuterol/Ipratropium (Duoneb 3 Mg/0.5 Mg (3 Ml) Ud) 3 ml IH [id number] PRN PRN Reason: Shortness of Breath Atorvastatin Calcium (Lipitor) 80 mg PO 1800 [facility] Last Admin: 02/21/18 18:30 Dose: 80 mg Metoclopramide HCl (Reglan) 10 mg IV ONCE PRN PRN Reason: Nausea/Vomiting Mirabegron [ Myrbetriq] 50 Mg) ( Home Med) 50 mg PO QAM [facility] Last Admin: 02/21/18 09:17 Dose: Not Given Ondansetron HCl (Zofran Inj) 4 mg IVP [id number] [facility] Last Admin: 02/22/18 02:35 Dose: Not Given Oxycodone/Acetaminophen (Percocet 5/325 Mg Tab) 1 tab PO Q6H PRN PRN Reason: Pain, moderate (4-7) Stop: 02/23/18 16:16 Pantoprazole Sodium (Protonix Inj) 40 mg IVP DAILY [facility] Last Admin: 02/21/18 09:17 Dose: 40 mg Sucralfate (Carafate Oral Susp) 1 gm PO 0600,1600 [facility] Last Admin: 02/22/18 05:15 Dose: 1 gm - Labs Labs: 02/22/18 08:10 02/22/18 08:10 PT 11.9 SECONDS (9.4-12.5) 02/20/18 03:36 INR 1.04 (0.93-1.08) 02/20/18 03:36 APTT 29.2 Seconds (25.1-36.5) 02/20/18 03:36 - Head Exam Head Exam: ATRAUMATIC, NORMAL INSPECTION, NORMOCEPHALIC - Eye Exam Eye Exam: EOMI, Normal appearance - ENT Exam ENT Exam: Mucous Membranes Moist, Normal Exam - Respiratory Exam Respiratory Exam: Clear to Ausculation Bilateral, NORMAL BREATHING PATTERN - Cardiovascular Exam Cardiovascular Exam: REGULAR RHYTHM, +S1, +S2 - GI/Abdominal Exam GI & Abdominal Exam: Soft, Normal Bowel Sounds - Extremities Exam Extremities Exam: Full ROM - Back Exam Back Exam: NORMAL INSPECTION - Neurological Exam Neurological Exam: Alert, Awake, Oriented x3 - Psychiatric Exam Psychiatric exam: Normal Affect, Normal Mood - Skin Skin Exam: Normal Color, Warm Assessment and Plan - Assessment and Plan (Free Text) Assessment: 73F pmhx of gastritis, HLD, hiatal hernia, asthma and arthritis who presents with symptomatic cholelithiasis and mild luekocytosis Plan: Symptomatic cholelithiasis - CT scan and abdominal US shows cholelithiasis, without cholecystitis - NPO - plan for cholecystectomy today by surgery team - cleared for OR from medical stand point - pain control PRN - IVF hx of Gastritis - 2015 endoscopy report shows diffuse gastritis w/o ulceration. Path: mild chronic gastritis - Protonix IV BID - Carafate BID - malox PRN - anti-emetic PRN hx of HLD - Resume home crestor hx of Asthma - resume home inhalers - duonebs q4 MARIA M PPX DVT: SCDs discussed w/ Dr. Ferreira Plan: 73F pmhx of gastritis, HLD, hiatal hernia, asthma and arthritis who presents with symptomatic cholelithiasis and mild luekocytosis Plan: Symptomatic cholelithiasis - CT scan and abdominal US shows cholelithiasis - Cholecystectomy successful, Regular diet resumed - pain control PRN hx of Gastritis - 2015 endoscopy report shows diffuse gastritis w/o ulceration. Path: mild chronic gastritis - Continue protonix IV BID - Continue Carafate BID - maalox PRN - Zofran PRN hx of HLD - Continue home crestor hx of Asthma - resume home inhalers - duonebs TID - robitussin DM for cough PPX DVT: SCDs Disposition: TCU discussed w/ Dr. Ferreira
[2018-02-22] MEDS ORDERED: guaiFENesin DM 200 mg-20 mg/10 ml UD PO PRN (12:59)
[2018-02-22] MEDS: Albuterol-Ipratrop 3 mg / 0.5 (3 ml) UD IH SCH ×2 (13:30→20:04)
--- NOTE | 2018-02-22 14:04 | OP ---
PROCEDURE DATE: 02/21/2018 PREOPERATIVE DIAGNOSIS: Cholecystitis. POSTOPERATIVE DIAGNOSIS: Cholecystitis. PROCEDURE: Laparoscopic cholecystectomy. SURGEON: Mika Esquivel MD. KNITTED CLOTH EXAMINER: Megha Maldonado DO and Bailey Mckinney DO. ANESTHESIA: General. ANESTHESIA ADMINISTERED BY: Moise Khan MD. DESCRIPTION OF OPERATION: With the patient in the supine position under adequate general anesthesia, the abdomen was prepped and draped in the usual sterile manner. Veress needle puncture was performed at the umbilicus with insufflation to 15 cm water pressure of CO2 and a 10 mm laparoscopic trocar was inserted via an infraumbilical incision. Under direct vision, additional trocars were inserted in the epigastrium and right costal margin. The gallbladder was identified. It appeared mildly thickened consistent with recent inflammation, but was not acutely inflamed. The gallbladder fundus was grasped and elevated. The infundibulum was grasped and retracted laterally. Dissection was begun in the area of the infundibulum and the cystic duct was identified and dissected. It was cleared down toward the junction of the common bile duct. The cystic artery was identified as well and dissected and both structures reviewed anteriorly and posteriorly for a view of safety. The cyst duct was then triply clipped and divided. The cystic artery was also then triply clipped and divided and a posterior branch in the peritoneal fold was triply clipped and divided as well. The gallbladder was dissected free of the liver bed using electrocautery. The liver bed was inspected for hemostasis and the dissection was completed. The gallbladder was placed in a specimen retrieval bag and removed via the epigastric puncture site. It was noted to contain at least one 1 cm stone. The right upper quadrant was irrigated and suctioned. The pneumoperitoneum was released and the trocars were removed. The umbilical and epigastric port sites were closed with [id number] fascial suture of 0 Vicryl. All incisions were closed with 4-0 Monocryl subcuticular sutures and Steri-Strips. Dry sterile dressings were applied. The patient tolerated the procedure well and transferred to recovery room in stable condition. Estimated blood loss for the procedure was 5 mL. Mika Esquivel MD [facility] # [id number]
[2018-02-22] MEDS: MIRABEGRON 50 MG PO SCH (17:50)
[2018-02-23] MEDS: Sucralfate 1 gm/10 ml Oral Susp UD PO SCH (05:32)
[2018-02-23 07:16] VITALS: BP 131/88; PULSE 88; RESP 20; TEMP 98.7; O2SAT 95
--- NOTE | 2018-02-23 07:47 | CP.PCM.PN ---
Subjective - Date & Time of Evaluation Date of Evaluation: 02/23/18 Time of Evaluation: 08:21 - Subjective Subjective: General surgery progress note for Dr. Rosario Mckinney, PGY-1 Pt S & E at bedside at 0650 Pt reports she is eating. No problems. Minimal abdominal pain. No acute events overnight per nursing. For TCU transfer today. Objective - Vital Signs/Intake and Output Vital Signs (last 24 hours): Temp Pulse Resp BP Pulse Ox 98.7 F 88 20 131/88 95 02/23/18 06:00 02/23/18 06:00 02/23/18 06:00 02/23/18 06:00 02/23/18 06:00 Intake and Output: 02/23/18 02/23/18 06:59 18:59 Intake Total 1140 Balance 1140 - Medications Medications: Current Medications Acetaminophen (Tylenol 325mg Tab) 650 mg PO Q6H PRN PRN Reason: Fever >100.4 F Al Hydrox/Mg Hydrox/Simethicone (Maalox Plus 30 Ml) 30 ml PO Q8H PRN PRN Reason: Indigestion / Heartburn Albuterol/Ipratropium (Duoneb 3 Mg/0.5 Mg (3 Ml) Ud) 3 ml IH TID [facility] Last Admin: 02/22/18 20:04 Dose: 3 ml Atorvastatin Calcium (Lipitor) 80 mg PO 1800 [facility] Last Admin: 02/22/18 17:49 Dose: 80 mg Guaifenesin/Dextromethorphan (Robitussin Dm) 10 ml PO Q4H PRN PRN Reason: Cough Metoclopramide HCl (Reglan) 10 mg IV ONCE PRN PRN Reason: Nausea/Vomiting Mirabegron [ Myrbetriq] 50 Mg) ( Home Med) 50 mg PO QAM [facility] Last Admin: 02/22/18 17:50 Dose: Not Given Ondansetron HCl (Zofran Inj) 4 mg IVP [id number] [facility] Last Admin: 02/22/18 14:36 Dose: Not Given Oxycodone/Acetaminophen (Percocet 5/325 Mg Tab) 1 tab PO Q6H PRN PRN Reason: Pain, moderate (4-7) Stop: 02/23/18 16:16 Pantoprazole Sodium (Protonix Inj) 40 mg IVP DAILY [facility] Last Admin: 02/22/18 09:52 Dose: 40 mg Sucralfate (Carafate Oral Susp) 1 gm PO 0600,1600 [facility] Last Admin: 02/23/18 05:32 Dose: 1 gm - Labs Labs: 02/22/18 08:10 02/22/18 08:10 PT 11.9 SECONDS (9.4-12.5) 02/20/18 03:36 INR 1.04 (0.93-1.08) 02/20/18 03:36 APTT 29.2 Seconds (25.1-36.5) 02/20/18 03:36 - Constitutional Appears: Non-toxic, No Acute Distress - Head Exam Head Exam: ATRAUMATIC, NORMAL INSPECTION, NORMOCEPHALIC - Eye Exam Eye Exam: EOMI, Normal appearance - ENT Exam ENT Exam: Mucous Membranes Moist, Normal Exam - Neck Exam Neck Exam: Full ROM, Normal Inspection - Respiratory Exam Respiratory Exam: NORMAL BREATHING PATTERN - Cardiovascular Exam Cardiovascular Exam: REGULAR RHYTHM, +S1, +S2 - GI/Abdominal Exam GI & Abdominal Exam: Soft, Tenderness (minimal, over surgical incision sites). absent: Distended, Firm, Guarding, Rigid Additional comments: surgical sites with glue in place- no erythema or drainage noted - Extremities Exam Extremities Exam: Normal Inspection - Neurological Exam Neurological Exam: Alert, Awake, CN II-XII Intact, Oriented x3 - Psychiatric Exam Psychiatric exam: Normal Affect, Normal Mood - Skin Skin Exam: Dry, Intact, Normal Color, Warm Assessment and Plan - Assessment and Plan (Free Text) Assessment: 73F POD#2 s/p lap marleen, stable, pain well controlled Plan: OOBTC PT Pain control- PO Anti-emetic PRN Cont reg diet Encourage IS use Ok for transfer to TCU No further surgical intervention Further mgmt as per primary team Will SILVA attending Faye, PGY-1
[2018-02-23] MEDS: Albuterol-Ipratrop 3 mg / 0.5 (3 ml) UD IH SCH ×2 (07:51→11:31)
[2018-02-23] MEDS: MIRABEGRON 50 MG PO SCH (10:49)
[2018-02-23 10:58] LABS: ALB/GLOB RATIO 1.4 (1.1-1.8); ALBUMIN 3.9 g/dL (3.0-4.8); ALT/SGPT 93 U/L (7-56); AST/SGOT 62 U/L (14-36); BLOOD UREA NITROGEN 11 mg/dL (7-21); CALCIUM 9.4 mg/dL (8.4-10.5); GFR AFRICAN-AMERICAN > 60; GFR NON-AFRICAN AMERICAN > 60
--- NOTE | 2018-02-23 21:29 | CP.PCM.DIS ---
<HarpreetPinky - Last Filed: 02/23/18 21:10> Provider - Provider Date of Admission: 02/20/18 14:52 Attending physician: Renetta Nichols MD Primary care physician: Yanet Patel DO Consults: SOPHIE Esquivel Time Spent in preparation of Discharge (in minutes): 45 Diagnosis - Discharge Diagnosis (1) Biliary colic Status: Acute Hospital Course - Lab Results Lab Results: Most Recent Lab Values WBC 7.1 10^3/ul (4.5-11.0) D 02/22/18 08:10 RBC 4.60 10^6/uL (3.5-6.1) 02/22/18 08:10 Hgb 13.0 g/dL (12.0-16.0) 02/22/18 08:10 Hct 39.1 % (36.0-48.0) 02/22/18 08:10 MCV 85.0 fl (80.0-105.0) 02/22/18 08:10 MCH 28.3 pg (25.0-35.0) 02/22/18 08:10 MCHC 33.2 g/dl (31.0-37.0) 02/22/18 08:10 RDW 13.5 % (11.5-14.5) 02/22/18 08:10 Plt Count 189 10^3/uL (120.0-450.0) 02/22/18 08:10 MPV 9.6 fl (7.0-11.0) 02/22/18 08:10 Gran % 63.7 % (50.0-68.0) 02/22/18 08:10 Lymph % (Auto) 28.1 % (22.0-35.0) 02/22/18 08:10 Meagher % (Auto) 7.5 % (1.0-6.0) H 02/22/18 08:10 Eos % (Auto) 0.6 % (1.5-5.0) L 02/22/18 08:10 Baso % (Auto) 0.1 % (0.0-3.0) 02/22/18 08:10 Gran # 4.50 (1.4-6.5) 02/22/18 08:10 Lymph # (Auto) 2.0 (1.2-3.4) 02/22/18 08:10 Meagher # (Auto) 0.5 (0.1-0.6) 02/22/18 08:10 Eos # (Auto) 0.0 (0.0-0.7) 02/22/18 08:10 Baso # (Auto) 0.01 K/mm3 (0.0-2.0) 02/22/18 08:10 Neutrophils % (Manual) 90 % (50.0-70.0) H 02/20/18 03:36 Band Neutrophils % 2 % (0-2) 02/20/18 03:36 Lymphocytes % (Manual) 4 % (22.0-35.0) L 02/20/18 03:36 Monocytes % (Manual) 4 % (1.0-6.0) 02/20/18 03:36 Platelet Evaluation Normal (NORMAL) 02/20/18 03:36 PT 11.9 SECONDS (9.4-12.5) 02/20/18 03:36 INR 1.04 (0.93-1.08) 02/20/18 03:36 APTT 29.2 Seconds (25.1-36.5) 02/20/18 03:36 Sodium 144 mmol/L (132-148) 02/23/18 09:30 Potassium 3.5 mmol/L (3.6-5.0) L 02/23/18 09:30 Chloride 104 mmol/L (98-107) 02/23/18 09:30 Carbon Dioxide 28 mmol/L (21-33) 02/23/18 09:30 Anion Gap 16 (10-20) 02/23/18 09:30 BUN 11 mg/dL (7-21) 02/23/18 09:30 Creatinine 0.6 mg/dl (0.7-1.2) L 02/23/18 09:30 Est GFR ( Amer) > 60 02/23/18 09:30 Est GFR (Non-Af Amer) > 60 02/23/18 09:30 Random Glucose 137 mg/dL (70-110) H 02/23/18 09:30 Calcium 9.4 mg/dL (8.4-10.5) 02/23/18 09:30 Phosphorus 2.2 mg/dL (2.5-4.5) L 02/22/18 08:10 Magnesium 1.9 mg/dL (1.7-2.2) 02/22/18 08:10 Total Bilirubin 0.6 mg/dL (0.2-1.3) 02/23/18 09:30 AST 62 U/L (14-36) H D 02/23/18 09:30 ALT 93 U/L (7-56) H 02/23/18 09:30 Alkaline Phosphatase 119 U/L (38-126) 02/23/18 09:30 Lactate Dehydrogenase 448 U/L (333-699) 02/20/18 03:36 Total Creatine Kinase 83 U/L (35-230) 02/20/18 03:36 Troponin I < 0.01 ng/mL 02/20/18 03:36 Total Protein 6.8 g/dL (5.8-8.3) 02/23/18 09:30 Albumin 3.9 g/dL (3.0-4.8) 02/23/18 09:30 Globulin 2.9 gm/dL 02/23/18 09:30 Albumin/Globulin Ratio 1.4 (1.1-1.8) 02/23/18 09:30 Amylase 74 U/L (35-125) 02/20/18 03:36 Lipase 60 U/L (23-300) 02/20/18 03:36 Urine Color Yellow (YELLOW) 02/20/18 03:36 Urine Appearance Sl cloudy (CLEAR) 02/20/18 03:36 Urine pH 6.0 (4.7-8.0) 02/20/18 03:36 Ur Specific [place] >= 1.030 (1.005-1.035) 02/20/18 03:36 Urine Protein Trace mg/dL (<30 mg/dL) H 02/20/18 03:36 Urine Glucose (UA) Negative mg/dL (NEGATIVE) 02/20/18 03:36 Urine Ketones Negative mg/dL (NEGATIVE) 02/20/18 03:36 Urine Blood Moderate (NEGATIVE) H 02/20/18 03:36 Urine Nitrate Negative (NEGATIVE) 02/20/18 03:36 Urine Bilirubin Negative (NEGATIVE) 02/20/18 03:36 Urine Urobilinogen 0.2 E.U./dL (<1 E.U./dL) 02/20/18 03:36 Ur Leukocyte Esterase Negative Jordin/uL (NEGATIVE) 02/20/18 03:36 Urine RBC 2 - 5 /hpf (0-2) 02/20/18 03:36 Urine WBC 0 - 2 /hpf (0-6) 02/20/18 03:36 Ur Epithelial Cells 3 - 4 /hpf (0-5) 02/20/18 03:36 Urine Other Mucus 02/20/18 03:36 - Hospital Course Hospital Course: 73yo [place] female with a PMH of gastritis, HLD, hiatal hernia, asthma and arthritis who initially presented with abdominal pain, nausea, and vomiting that started the prior night, and progressively worsened which led her to come to the ER. During her admission, she was treated for gastritis, and taken to the OR for laprascopic cholecystectomy for symptomatic cholethiasis. She tolerated the procedure well, but was weak afterwards. She was evaluated by physical therapy who recommended TCU for rehabilitation. Prior to discharge, she was noted to have transaminemia, which was improving on rechecking it. Today, she continues to have some abdominal pain, near the incisions. She is also complaining of right shoulder pain. She reports that she has not yet passed gas or had a bowel movement. She is ambulating around her room. She is being transferred to TCU for rehab and continued monitoring. Discharge Exam - Head Exam Head Exam: ATRAUMATIC, NORMAL INSPECTION, NORMOCEPHALIC - Eye Exam Eye Exam: EOMI, Normal appearance - ENT Exam ENT Exam: Mucous Membranes Moist - Respiratory Exam Respiratory Exam: Clear to PA & Lateral, NORMAL BREATHING PATTERN - Cardiovascular Exam Cardiovascular Exam: RRR. absent: Tachycardia - GI/Abdominal Exam GI & Abdominal Exam: Normal Bowel Sounds, Soft, Tenderness (mild, to superficial palpation) Additional comments: faint infraumbilical erythema noted; marked and dated - Extremities Exam Extremities exam: normal inspection - Neurological Exam Neurological exam: Alert, Oriented x3 - Psychiatric Exam Psychiatric exam: Normal Affect, Normal Mood Discharge Plan - Follow Up Plan Condition: STABLE Disposition: REHAB FACILITY/REHAB UNIT Instructions: Laparoscopy, Acute Abdomen (Belly Pain), Adult (DC) Additional Instructions: Call Dr. Esquivel's office today to schedule a follow up appointment in 1 week Make a follow up appointment with your primary physician Still go to your follow up appointment with Dr. Colbert Do not lift>10 pounds for 4-6 weeks Take stool softeners for any constipation with pain medicine You may shower/bathe--glue will fall off on its own, do not attempt to remove Referrals: Mika Esquivel MD [Staff Provider] - Yanet Patel DO [Primary Care Provider] - <MalikLeonie - Last Filed: 02/23/18 23:09> Provider - Provider Date of Admission: 02/20/18 14:52 Attending physician: Renetta Nichols MD Primary care physician: Yanet Patel DO Hospital Course - Lab Results Lab Results: Most Recent Lab Values WBC 7.1 10^3/ul (4.5-11.0) D 02/22/18 08:10 RBC 4.60 10^6/uL (3.5-6.1) 02/22/18 08:10 Hgb 13.0 g/dL (12.0-16.0) 02/22/18 08:10 Hct 39.1 % (36.0-48.0) 02/22/18 08:10 MCV 85.0 fl (80.0-105.0) 02/22/18 08:10 MCH 28.3 pg (25.0-35.0) 02/22/18 08:10 MCHC 33.2 g/dl (31.0-37.0) 02/22/18 08:10 RDW 13.5 % (11.5-14.5) 02/22/18 08:10 Plt Count 189 10^3/uL (120.0-450.0) 02/22/18 08:10 MPV 9.6 fl (7.0-11.0) 02/22/18 08:10 Gran % 63.7 % (50.0-68.0) 02/22/18 08:10 Lymph % (Auto) 28.1 % (22.0-35.0) 02/22/18 08:10 Meagher % (Auto) 7.5 % (1.0-6.0) H 02/22/18 08:10 Eos % (Auto) 0.6 % (1.5-5.0) L 02/22/18 08:10 Baso % (Auto) 0.1 % (0.0-3.0) 02/22/18 08:10 Gran # 4.50 (1.4-6.5) 02/22/18 08:10 Lymph # (Auto) 2.0 (1.2-3.4) 02/22/18 08:10 Meagher # (Auto) 0.5 (0.1-0.6) 02/22/18 08:10 Eos # (Auto) 0.0 (0.0-0.7) 02/22/18 08:10 Baso # (Auto) 0.01 K/mm3 (0.0-2.0) 02/22/18 08:10 Neutrophils % (Manual) 90 % (50.0-70.0) H 02/20/18 03:36 Band Neutrophils % 2 % (0-2) 02/20/18 03:36 Lymphocytes % (Manual) 4 % (22.0-35.0) L 02/20/18 03:36 Monocytes % (Manual) 4 % (1.0-6.0) 02/20/18 03:36 Platelet Evaluation Normal (NORMAL) 02/20/18 03:36 PT 11.9 SECONDS (9.4-12.5) 02/20/18 03:36 INR 1.04 (0.93-1.08) 02/20/18 03:36 APTT 29.2 Seconds (25.1-36.5) 02/20/18 03:36 Sodium 144 mmol/L (132-148) 02/23/18 09:30 Potassium 3.5 mmol/L (3.6-5.0) L 02/23/18 09:30 Chloride 104 mmol/L (98-107) 02/23/18 09:30 Carbon Dioxide 28 mmol/L (21-33) 02/23/18 09:30 Anion Gap 16 (10-20) 02/23/18 09:30 BUN 11 mg/dL (7-21) 02/23/18 09:30 Creatinine 0.6 mg/dl (0.7-1.2) L 02/23/18 09:30 Est GFR ( Amer) > 60 02/23/18 09:30 Est GFR (Non-Af Amer) > 60 02/23/18 09:30 Random Glucose 137 mg/dL (70-110) H 02/23/18 09:30 Calcium 9.4 mg/dL (8.4-10.5) 02/23/18 09:30 Phosphorus 2.2 mg/dL (2.5-4.5) L 02/22/18 08:10 Magnesium 1.9 mg/dL (1.7-2.2) 02/22/18 08:10 Total Bilirubin 0.6 mg/dL (0.2-1.3) 02/23/18 09:30 AST 62 U/L (14-36) H D 02/23/18 09:30 ALT 93 U/L (7-56) H 02/23/18 09:30 Alkaline Phosphatase 119 U/L (38-126) 02/23/18 09:30 Lactate Dehydrogenase 448 U/L (333-699) 02/20/18 03:36 Total Creatine Kinase 83 U/L (35-230) 02/20/18 03:36 Troponin I < 0.01 ng/mL 02/20/18 03:36 Total Protein 6.8 g/dL (5.8-8.3) 02/23/18 09:30 Albumin 3.9 g/dL (3.0-4.8) 02/23/18 09:30 Globulin 2.9 gm/dL 02/23/18 09:30 Albumin/Globulin Ratio 1.4 (1.1-1.8) 02/23/18 09:30 Amylase 74 U/L (35-125) 02/20/18 03:36 Lipase 60 U/L (23-300) 02/20/18 03:36 Urine Color Yellow (YELLOW) 02/20/18 03:36 Urine Appearance Sl cloudy (CLEAR) 02/20/18 03:36 Urine pH 6.0 (4.7-8.0) 02/20/18 03:36 Ur Specific [place] >= 1.030 (1.005-1.035) 02/20/18 03:36 Urine Protein Trace mg/dL (<30 mg/dL) H 02/20/18 03:36 Urine Glucose (UA) Negative mg/dL (NEGATIVE) 02/20/18 03:36 Urine Ketones Negative mg/dL (NEGATIVE) 02/20/18 03:36 Urine Blood Moderate (NEGATIVE) H 02/20/18 03:36 Urine Nitrate Negative (NEGATIVE) 02/20/18 03:36 Urine Bilirubin Negative (NEGATIVE) 02/20/18 03:36 Urine Urobilinogen 0.2 E.U./dL (<1 E.U./dL) 02/20/18 03:36 Ur Leukocyte Esterase Negative Jordin/uL (NEGATIVE) 02/20/18 03:36 Urine RBC 2 - 5 /hpf (0-2) 02/20/18 03:36 Urine WBC 0 - 2 /hpf (0-6) 02/20/18 03:36 Ur Epithelial Cells 3 - 4 /hpf (0-5) 02/20/18 03:36 Urine Other Mucus 02/20/18 03:36 Attending/Attestation - Attestation I have personally seen and examined this patient.: Yes I have fully participated in the care of the patient.: Yes I have reviewed all pertinent clinical information, including history, physical exam and plan: Yes
== END 2018-02-23 13:10 | DRG 419 ==
LOC: ED 02:33 → ERH 14:52 → 3RNO 16:21
PROVIDERS: ADMIT Internal Medicine; ATTEND Internal Medicine
PROC: 0FT44ZZ Resection of Gallbladder, Percutaneous Endoscopic Approach (ICD-10-PCS; principal; 2018-02-21 13:30)
DX: K80.10 Calculus of gallbladder with chronic cholecystitis without obstruction (principal); K29.50 Unspecified chronic gastritis without bleeding; K44.9 Diaphragmatic hernia without obstruction or gangrene; K21.9 Gastro-esophageal reflux disease without esophagitis; J45.909 Unspecified asthma, uncomplicated; E78.00 Pure hypercholesterolemia, unspecified; E78.5 Hyperlipidemia, unspecified; K76.0 Fatty (change of) liver, not elsewhere classified; M19.90 Unspecified osteoarthritis, unspecified site

== ENCOUNTER 2018-02-23 13:10 | Inpatient (IN) | payer OTHER ==
[2018-02-23] MEDS: Alum-Mag Hydrox-Simethicone Susp (30 mL) PO SCH ×2 (14:02→21:46)
[2018-02-23] MEDS ORDERED: guaiFENesin DM 200 mg-20 mg/10 ml UD PO PRN (14:05)
[2018-02-23] MEDS ORDERED: Oxycodone/Acetaminophen 5/325 mg Tab PO PRN (14:05)
[2018-02-23 14:20] VITALS: BMI 22.1
[2018-02-23] MEDS ORDERED: Pneumococcal 23-Valent Vaccine IM ONE (14:20)
[2018-02-23] MEDS ORDERED: Simethicone 40 mg/0.6 ml Liquid (30 ml) PO ONE (14:37)
[2018-02-23] MEDS ORDERED: Sucralfate 1 gm/10 ml Oral Susp UD PO SCH (16:00)
[2018-02-23] MEDS: Potassium Chloride 20 mEq ER Tab PO SCH ×2 (17:34→19:01)
[2018-02-23] MEDS: Albuterol-Ipratrop 3 mg / 0.5 (3 ml) UD IH SCH (19:55)
[2018-02-24] MEDS: Alum-Mag Hydrox-Simethicone Susp (30 mL) PO SCH (05:52)
[2018-02-24] MEDS: Albuterol-Ipratrop 3 mg / 0.5 (3 ml) UD IH SCH ×4 (07:34→21:27)
[2018-02-24] MEDS ORDERED: Alum-Mag Hydrox-Simethicone Susp (30 mL) PO PRN (07:36)
[2018-02-24] MEDS: POLYETHYLENE GLYCOL 3350 17 GM/Dose PACKET PO SCH (09:56)
[2018-02-24] MEDS ORDERED: Home Med 1 UNIT PO SCH (10:00)
--- NOTE | 2018-02-24 16:14 | CP.PCM.HP ---
<HarpreetPinky - Last Filed: 02/24/18 16:15> History of Present Illness - History of Present Illness History of Present Illness: Pinky Mullins DO PGY1 - TCU H&P for Dr. Malik 73yo [place] female with a PMH of gastritis, HLD, hiatal hernia, asthma and arthritis who presents to TCU for deconditioning and generalized weakness, s/p laparoscopic cholecystectomy for symptomatic cholelithiasis. She initially presented to [facility] with abdominal pain, nausea, and vomiting that started the night prior, and progressively worsened which led her to go to the ER. She was noted to have cholelithiasis, without cholecystitis. She was take to the OR for lap seble. She was also treated for gastritis. She was evaluated by physical therapy who recommended TCU for rehab of deconditioning and generalized weakness. Today, she is complaining of mild abdominal pain and right shoulder pain, slightly improved since yesterday. She denies chest pain, shortness of breath, fever, chills, nausea, vomiting, diarrhea. She has not had a bowel movement in 4 days, but she has been passing gas for the past day. Remained of 12 point ROS was obtained and was negative. PMH: gastritis, HLD, hiatal hernia, asthma and arthritis PSH: none Meds: Crestor; was previously prescribed a PPI and Myrbetric but decided that since it was the summer, she should take a break from her medications ALL: NKDA SHx: denies smoking, ETOH, or drug use; goes to [facility] ) Present on Admission - Present on Admission Any Indicators Present on Admission: No Past Patient History - Infectious Disease Hx of Infectious Diseases: None - Tetanus Immunizations Tetanus Immunization: Unknown - Past Medical History & Family History Past Medical History?: Yes - Past Social History Smoking Status: Never Smoked - CARDIAC Hx Cardiac Disorders: Yes Hx Hypercholesterolemia: Yes - PULMONARY Hx Respiratory Disorders: Yes Hx Asthma: Yes - NEUROLOGICAL Hx Paralysis: No - HEENT Hx HEENT Problems: No - RENAL Hx Chronic Kidney Disease: No - ENDOCRINE/METABOLIC Hx Endocrine Disorders: No - HEMATOLOGICAL/ONCOLOGICAL Hx Blood Transfusions: No - INTEGUMENTARY Hx Dermatological Problems: No - MUSCULOSKELETAL/RHEUMATOLOGICAL Hx Arthritis: Yes - GASTROINTESTINAL Hx Gastrointestinal Disorders: Yes (CHOLECYSTITIS,CHOLELITHIASIS POST LAP SEBLE, GASTRITIS,BILIARY COLIC,) - GENITOURINARY/GYNECOLOGICAL Hx Genitourinary Disorders: Yes (UTI) Hx Reproductive Disorders: No - PSYCHIATRIC Hx Emotional Abuse: No Hx Physical Abuse: No Hx Substance Use: No - SURGICAL HISTORY Hx Surgeries: Yes - ANESTHESIA Hx Anesthesia Reactions: No Hx Malignant Hyperthermia: No Meds Allergies/Adverse Reactions: Allergies Allergy/AdvReac Type Severity Reaction Status Date / Time UNKNOWN ANTIBIOTICS Allergy REDNESS Uncoded 02/23/18 13:55 Physical Exam - Constitutional Appears: Non-toxic, No Acute Distress - Head Exam Head Exam: NORMAL INSPECTION - Eye Exam Eye Exam: EOMI, Normal appearance - ENT Exam ENT Exam: Mucous Membranes Moist - Neck Exam Neck exam: Positive for: Normal Inspection - Respiratory Exam Respiratory Exam: Clear to Auscultation Bilateral, NORMAL BREATHING PATTERN - Cardiovascular Exam Cardiovascular Exam: RRR - GI/Abdominal Exam GI & Abdominal Exam: Soft, Tenderness (minimal, to superficial palpation over incision sites; also to deep palpation of RLQ). absent: Distended, Firm, Guarding, Rebound, Rigid - Extremities Exam Extremities exam: Negative for: calf tenderness, pedal edema - Neurological Exam Neurological exam: Alert, CN II-XII Intact, Oriented x3 - Psychiatric Exam Psychiatric exam: Normal Affect, Normal Mood - Skin Skin Exam: Dry, Intact, Normal Color Results - Vital Signs Recent Vital Signs: Last Vital Signs Temp 98.3 F 02/24/18 10:57 Pulse 101 H 02/24/18 10:57 Resp 18 02/24/18 10:57 BP 119/78 02/24/18 10:57 Pulse Ox 98 02/24/18 10:57 Assessment & Plan - Assessment and Plan (Free Text) Assessment: 73F pmhx of gastritis, HLD, hiatal hernia, asthma and arthritis who presents to TCU for rehabilitation of deconditioning and generalized weakness; she is s/p lap seble for symptomatic cholelithiasis Plan: Symptomatic cholelithiasis s/p lap seble - Pain control - Miralax and colace for constipation - Continue to monitor Hx of Gastritis - 2016 endoscopy report shows diffuse gastritis w/o ulceration. Path: mild chronic gastritis - Protonix PO - Maalox PRN - anti-emetic PRN hx of HLD - Continue home crestor hx of Asthma - Continue home inhalers - duonebs q4 MARIA M PPX DVT: SCDs discussed w/ Dr. Malik <Leonie Malik - Last Filed: 02/24/18 17:11> Results - Vital Signs Recent Vital Signs: Last Vital Signs Temp 98.3 F 02/24/18 10:57 Pulse 101 H 02/24/18 10:57 Resp 18 02/24/18 10:57 BP 119/78 02/24/18 10:57 Pulse Ox 98 02/24/18 10:57 Attending/Attestation - Attestation I have personally seen and examined this patient.: Yes I have fully participated in the care of the patient.: Yes I have reviewed all pertinent clinical information: Yes Notes (Text): 02/24/18 17:10 Patient seen and examined independently. Vitals and labs noted. Her abdominal symptoms have resolved. Agree with the plan as discussed and outlined by the resident.
[2018-02-25] MEDS: Pantoprazole 40 mg EC Tab PO SCH (05:51)
[2018-02-25] MEDS: Albuterol-Ipratrop 3 mg / 0.5 (3 ml) UD IH SCH ×3 (07:01→21:05)
[2018-02-25 07:57] LABS: BASO # 0.04 K/mm3 (0.0-2.0); BASO % 0.6 % (0.0-3.0); EOS # 0.2 (0.0-0.7); EOS % 2.4 % (1.5-5.0); GRAN # 3.85 (1.4-6.5); GRAN % 55.4 % (50.0-68.0); HEMOGLOBIN 13.6 g/dL (12.0-16.0); LYMPH # 2.4 (1.2-3.4); LYMPH % 34.7 % (22.0-35.0); MEAN CELL VOLUME 85.4 fl (80.0-105.0); MEAN CORPUSCULAR HGB CONC 32.8 g/dl (31.0-37.0); MEAN PLATELET VOLUME 9.5 fl (7.0-11.0); MONO # 0.5 (0.1-0.6); MONO % 6.9 % (1.0-6.0); RBC 4.86 10^6/uL (3.5-6.1); RED CELL DISTRIBUTION WIDTH 13.1 % (11.5-14.5)
[2018-02-25 08:21] LABS: ALB/GLOB RATIO 1.5 (1.1-1.8); ALBUMIN 4.5 g/dL (3.0-4.8); ALT/SGPT 76 U/L (7-56); AST/SGOT 42 U/L (14-36); BLOOD UREA NITROGEN 11 mg/dL (7-21); CALCIUM 9.7 mg/dL (8.4-10.5); GFR AFRICAN-AMERICAN > 60; GFR NON-AFRICAN AMERICAN > 60
[2018-02-25] MEDS ORDERED: Pantoprazole 40 mg EC Tab PO ONE (10:00)
[2018-02-25] MEDS: POLYETHYLENE GLYCOL 3350 17 GM/Dose PACKET PO SCH (10:11)
[2018-02-25] MEDS: MYRBETRIQ 50 MG PO SCH (10:43)
[2018-02-26] MEDS: Pantoprazole 40 mg EC Tab PO SCH (06:09)
[2018-02-26] MEDS: Albuterol-Ipratrop 3 mg / 0.5 (3 ml) UD IH SCH ×3 (07:00→20:21)
[2018-02-26] MEDS ORDERED: Benzocaine/Menthol (Cepacol) Lozenge MT PRN (08:31)
--- NOTE | 2018-02-26 09:05 | CP.PCM.PN ---
<Dell Rogers - Last Filed: 02/26/18 12:18> Subjective - Date & Time of Evaluation Date of Evaluation: 02/26/18 Time of Evaluation: 06:15 - Subjective Subjective: Patient seen and examined at bedside in no acute distress. She states she did well with coughing during the day with her breathing treatments, however had a hard time overnight with the cough. States her abdominal pain is decreasing and that she is getting better. Denies shortness of breath, chest pain, nausea, vomiting, diarrhea, fevers, chills. Objective - Vital Signs/Intake and Output Vital Signs (last 24 hours): Temp Pulse Resp BP Pulse Ox 98 F 89 16 121/79 93 L 02/25/18 16:00 02/25/18 16:00 02/25/18 16:00 02/25/18 16:00 02/25/18 16:00 - Medications Medications: Current Medications Acetaminophen (Tylenol 325mg Tab) 650 mg PO Q6H PRN; Protocol PRN Reason: Fever >100.4 F Al Hydrox/Mg Hydrox/Simethicone (Maalox Plus 30 Ml) 30 ml PO Q8H PRN; Protocol PRN Reason: GI distress Last Admin: 02/26/18 06:09 Dose: 30 ml Albuterol/Ipratropium (Duoneb 3 Mg/0.5 Mg (3 Ml) Ud) 3 ml IH TIDRESP [facility] PRN Reason: Protocol Last Admin: 02/26/18 07:00 Dose: 3 ml Atorvastatin Calcium (Lipitor) 80 mg PO DIN MARIA M PRN Reason: Protocol Last Admin: 02/25/18 17:47 Dose: Not Given Benzocaine/Menthol (Cepacol Sore Throat) 1 chanel MT Q2H PRN PRN Reason: Sore Throat Docusate Sodium (Colace) 100 mg PO DAILY MARIA M Last Admin: 02/25/18 10:11 Dose: 100 mg Guaifenesin/Dextromethorphan (Robitussin Dm) 10 ml PO Q4H PRN; Protocol PRN Reason: Cough Last Admin: 02/26/18 06:12 Dose: 10 ml Home Med (Home Med) 1 unit PO QAM [facility] PRN Reason: Protocol Last Admin: 02/25/18 10:43 Dose: Not Given Ondansetron HCl (Zofran Inj) 4 mg IVP Q6H PRN; Protocol PRN Reason: Nausea/Vomiting Pantoprazole Sodium (Protonix Ec Tab) 40 mg PO 0600 MARIA M PRN Reason: Protocol Last Admin: 02/26/18 06:09 Dose: 40 mg Polyethylene Glycol (Miralax) 17 gm PO DAILY [facility] Last Admin: 02/25/18 10:11 Dose: 17 gm - Labs Labs: 02/25/18 07:53 02/25/18 07:53 - Head Exam Head Exam: ATRAUMATIC, NORMAL INSPECTION, NORMOCEPHALIC - Eye Exam Eye Exam: EOMI, Normal appearance - ENT Exam ENT Exam: Mucous Membranes Moist, Normal Exam - Respiratory Exam Respiratory Exam: Clear to Ausculation Bilateral, NORMAL BREATHING PATTERN - Cardiovascular Exam Cardiovascular Exam: REGULAR RHYTHM - GI/Abdominal Exam GI & Abdominal Exam: Soft, Normal Bowel Sounds - Back Exam Back Exam: NORMAL INSPECTION - Neurological Exam Neurological Exam: Alert, Awake, Oriented x3 - Psychiatric Exam Psychiatric exam: Normal Affect, Normal Mood - Skin Skin Exam: Intact, Normal Color, Warm Assessment and Plan - Assessment and Plan (Free Text) Assessment: 73F pmhx of gastritis, HLD, hiatal hernia, asthma and arthritis who presents to TCU for rehabilitation of deconditioning and generalized weakness; she is s/p lap marleen for symptomatic cholelithiasis Plan: Symptomatic cholelithiasis s/p lap marleen - Pain control - Miralax and colace for constipation - Continue to monitor Cough - Continue with Duonebs - Robitussim DM - Cepacol PRN Hx of Gastritis - 2015 endoscopy report shows diffuse gastritis w/o ulceration. Path: mild chronic gastritis - Protonix PO - Maalox PRN - anti-emetic PRN hx of HLD -Continue home crestor hx of Asthma - Continue home inhalers - duonebs q4 MARIA M PPX DVT: SCDs discussed w/ Dr. Nichols <Renetta Nichols - Last Filed: 02/28/18 15:43> Objective - Vital Signs/Intake and Output Vital Signs (last 24 hours): Temp Pulse Resp BP Pulse Ox 98 F 89 18 120/79 98 02/28/18 10:00 02/28/18 10:00 02/28/18 10:00 02/28/18 10:00 06/28/18 10:00 - Labs Labs: 02/27/18 06:30 02/27/18 06:30 Attending/Attestation - Attestation I have personally seen and examined this patient.: Yes I have fully participated in the care of the patient.: Yes I have reviewed all pertinent clinical information, including history, physical exam and plan: Yes Notes (Text): 02/28/18 15:41 Medical record note made by the resident after discussion with my direction and input after the patient was personally seen and examined by me. I have reviewed the chart and agree that the record accurately reflects by personal performance of the history, physical exam, data review, and medical decision-making, in the course for the patient. I have also personally directed the plan of care. 73 yrs old F with PMH of Galls tone,hyperlipidemia,asthma was admitted with biliary colic,underwent cholycystectomy and then was transfered ,in TCU for rehabilitation. Patient is ambulatory, tolerating diet and is participation in physical therapy.
[2018-02-26] MEDS: POLYETHYLENE GLYCOL 3350 17 GM/Dose PACKET PO SCH (09:42)
[2018-02-26] MEDS: MYRBETRIQ 50 MG PO SCH (11:00)
[2018-02-27] MEDS: Pantoprazole 40 mg EC Tab PO SCH (05:54)
[2018-02-27 07:02] LABS: BASO # 0.02 K/mm3 (0.0-2.0); BASO % 0.3 % (0.0-3.0); EOS # 0.2 (0.0-0.7); GRAN # 3.93 (1.4-6.5); GRAN % 51.9 % (50.0-68.0); HEMOGLOBIN 14.3 g/dL (12.0-16.0); LYMPH # 2.9 (1.2-3.4); LYMPH % 38.3 % (22.0-35.0); MEAN CELL VOLUME 84.8 fl (80.0-105.0); MEAN CORPUSCULAR HEMOGLOBIN 28.3 pg (25.0-35.0); MEAN CORPUSCULAR HGB CONC 33.3 g/dl (31.0-37.0); MEAN PLATELET VOLUME 9.3 fl (7.0-11.0); MONO # 0.5 (0.1-0.6); MONO % 6.5 % (1.0-6.0); RBC 5.06 10^6/uL (3.5-6.1); RED CELL DISTRIBUTION WIDTH 12.7 % (11.5-14.5); WHITE BLOOD COUNT 7.6 10^3/ul (4.5-11.0)
[2018-02-27 07:25] LABS: ALB/GLOB RATIO 1.4 (1.1-1.8); ALBUMIN 4.6 g/dL (3.0-4.8); ALT/SGPT 53 U/L (7-56); AST/SGOT 41 U/L (14-36); BLOOD UREA NITROGEN 18 mg/dL (7-21); CALCIUM 9.7 mg/dL (8.4-10.5); GFR AFRICAN-AMERICAN > 60; GFR NON-AFRICAN AMERICAN > 60
[2018-02-27] MEDS: Albuterol-Ipratrop 3 mg / 0.5 (3 ml) UD IH SCH ×3 (07:27→19:53)
[2018-02-27] MEDS: POLYETHYLENE GLYCOL 3350 17 GM/Dose PACKET PO SCH (09:56)
[2018-02-27] MEDS: MYRBETRIQ 50 MG PO SCH (09:57)
[2018-02-27 17:41] VITALS: RESP 18
[2018-02-28] MEDS: Pantoprazole 40 mg EC Tab PO SCH (06:02)
--- NOTE | 2018-02-28 07:01 | CP.PCM.PN ---
Objective - Vital Signs/Intake and Output Vital Signs (last 24 hours): Temp Pulse Resp BP Pulse Ox 97.6 F 80 18 132/80 96 02/28/18 06:00 02/28/18 06:00 02/28/18 06:00 02/28/18 06:00 02/28/18 06:00 - Medications Medications: Current Medications Acetaminophen (Tylenol 325mg Tab) 650 mg PO Q6H PRN; Protocol PRN Reason: Fever >100.4 F Al Hydrox/Mg Hydrox/Simethicone (Maalox Plus 30 Ml) 30 ml PO Q8H PRN; Protocol PRN Reason: GI distress Last Admin: 02/26/18 06:09 Dose: 30 ml Albuterol/Ipratropium (Duoneb 3 Mg/0.5 Mg (3 Ml) Ud) 3 ml IH TIDRESP [facility] PRN Reason: Protocol Last Admin: 02/27/18 19:53 Dose: 3 ml Atorvastatin Calcium (Lipitor) 80 mg PO DIN [facility] PRN Reason: Protocol Last Admin: 02/27/18 17:15 Dose: Not Given Benzocaine/Menthol (Cepacol Sore Throat) 1 chanel MT Q2H PRN PRN Reason: Sore Throat Last Admin: 02/27/18 05:53 Dose: 1 chanel Docusate Sodium (Colace) 100 mg PO DAILY [facility] Last Admin: 02/27/18 09:56 Dose: 100 mg Guaifenesin/Dextromethorphan (Robitussin Dm) 10 ml PO Q4H PRN; Protocol PRN Reason: Cough Last Admin: 02/26/18 06:12 Dose: 10 ml Home Med (Home Med) 1 unit PO QAM [facility] PRN Reason: Protocol Last Admin: 02/27/18 09:57 Dose: Not Given Ondansetron HCl (Zofran Inj) 4 mg IVP Q6H PRN; Protocol PRN Reason: Nausea/Vomiting Pantoprazole Sodium (Protonix Ec Tab) 40 mg PO 0600 [facility] PRN Reason: Protocol Last Admin: 02/28/18 06:02 Dose: 40 mg Polyethylene Glycol (Miralax) 17 gm PO DAILY [facility] Last Admin: 02/27/18 09:56 Dose: 17 gm - Labs Labs: 02/27/18 06:30 02/27/18 06:30 - Head Exam Head Exam: ATRAUMATIC, NORMAL INSPECTION, NORMOCEPHALIC - Eye Exam Eye Exam: EOMI, Normal appearance - ENT Exam ENT Exam: Mucous Membranes Moist - Respiratory Exam Respiratory Exam: Clear to Ausculation Bilateral, NORMAL BREATHING PATTERN. absent: Rhonchi, Wheezes - Cardiovascular Exam Cardiovascular Exam: REGULAR RHYTHM, +S1, +S2 - GI/Abdominal Exam GI & Abdominal Exam: Soft, Normal Bowel Sounds - Extremities Exam Extremities Exam: Normal Inspection - Back Exam Back Exam: NORMAL INSPECTION - Neurological Exam Neurological Exam: Alert, Awake, Oriented x3 - Psychiatric Exam Psychiatric exam: Normal Affect, Normal Mood - Skin Skin Exam: Normal Color, Warm Assessment and Plan - Assessment and Plan (Free Text) Assessment: 73F pmhx of gastritis, HLD, hiatal hernia, asthma and arthritis who presents to TCU for rehabilitation of deconditioning and generalized weakness; she is s/p lap marleen for symptomatic cholelithiasis Plan: Symptomatic cholelithiasis s/p lap marleen - Pain control - Miralax and colace for constipation - Continue to monitor Cough - Continue with Duonebs - Robitussim DM - Cepacol PRN Hx of Gastritis - 2016 endoscopy report shows diffuse gastritis w/o ulceration. Path: mild chronic gastritis - Protonix PO - Maalox PRN - anti-emetic PRN hx of HLD -Continue home crestor hx of Asthma - Continue home inhalers - duonebs q4 MARIA M PPX DVT: SCDs discussed w/ Dr. Nichols
[2018-02-28] MEDS: Albuterol-Ipratrop 3 mg / 0.5 (3 ml) UD IH SCH ×2 (07:02→13:13)
[2018-02-28] MEDS: POLYETHYLENE GLYCOL 3350 17 GM/Dose PACKET PO SCH ×2 (09:51→09:53)
[2018-02-28] MEDS: MYRBETRIQ 50 MG PO SCH (09:51)
[2018-02-28 10:49] VITALS: BP 120/79; PULSE 89; TEMP 98
[2018-02-28 10:57] VITALS: O2SAT 98
--- NOTE | 2018-02-28 12:49 | CP.PCM.DIS ---
<Dell Rogers - Last Filed: 02/28/18 12:49> Provider - Provider Date of Admission: 02/23/18 13:10 Attending physician: Renetta Nichols MD Primary care physician: Yanet Patel DO Time Spent in preparation of Discharge (in minutes): 40 Diagnosis - Discharge Diagnosis (1) History of cholecystectomy Status: Acute Priority: Low (2) Hyperlipidemia Status: Chronic Priority: Low Hospital Course - Lab Results Lab Results: Most Recent Lab Values WBC 7.6 10^3/ul (4.5-11.0) 02/27/18 06:30 RBC 5.06 10^6/uL (3.5-6.1) 02/27/18 06:30 Hgb 14.3 g/dL (12.0-16.0) 02/27/18 06:30 Hct 42.9 % (36.0-48.0) 02/27/18 06:30 MCV 84.8 fl (80.0-105.0) 02/27/18 06:30 MCH 28.3 pg (25.0-35.0) 02/27/18 06:30 MCHC 33.3 g/dl (31.0-37.0) 02/27/18 06:30 RDW 12.7 % (11.5-14.5) 02/27/18 06:30 Plt Count 287 10^3/uL (120.0-450.0) 02/27/18 06:30 MPV 9.3 fl (7.0-11.0) 02/27/18 06:30 Gran % 51.9 % (50.0-68.0) 02/27/18 06:30 Lymph % (Auto) 38.3 % (22.0-35.0) H 02/27/18 06:30 York % (Auto) 6.5 % (1.0-6.0) H 02/27/18 06:30 Eos % (Auto) 3.0 % (1.5-5.0) 02/27/18 06:30 Baso % (Auto) 0.3 % (0.0-3.0) 02/27/18 06:30 Gran # 3.93 (1.4-6.5) 02/27/18 06:30 Lymph # (Auto) 2.9 (1.2-3.4) 02/27/18 06:30 York # (Auto) 0.5 (0.1-0.6) 02/27/18 06:30 Eos # (Auto) 0.2 (0.0-0.7) 02/27/18 06:30 Baso # (Auto) 0.02 K/mm3 (0.0-2.0) 02/27/18 06:30 Sodium 142 mmol/L (132-148) 02/27/18 06:30 Potassium 4.2 mmol/L (3.6-5.0) 02/27/18 06:30 Chloride 98 mmol/L (98-107) 02/27/18 06:30 Carbon Dioxide 32 mmol/L (21-33) 02/27/18 06:30 Anion Gap 16 (10-20) 02/27/18 06:30 BUN 18 mg/dL (7-21) 02/27/18 06:30 Creatinine 0.7 mg/dl (0.7-1.2) 02/27/18 06:30 Est GFR ( Amer) > 60 02/27/18 06:30 Est GFR (Non-Af Amer) > 60 02/27/18 06:30 Random Glucose 120 mg/dL (70-110) H 02/27/18 06:30 Calcium 9.7 mg/dL (8.4-10.5) 02/27/18 06:30 Total Bilirubin 0.6 mg/dL (0.2-1.3) 02/27/18 06:30 AST 41 U/L (14-36) H 02/27/18 06:30 ALT 53 U/L (7-56) 02/27/18 06:30 Alkaline Phosphatase 98 U/L (38-126) 02/27/18 06:30 Total Protein 7.8 g/dL (5.8-8.3) 02/27/18 06:30 Albumin 4.6 g/dL (3.0-4.8) 02/27/18 06:30 Globulin 3.2 gm/dL 02/27/18 06:30 Albumin/Globulin Ratio 1.4 (1.1-1.8) 02/27/18 06:30 - Hospital Course Hospital Course: 73yo [place] female with a PMH of gastritis, HLD, hiatal hernia, asthma and arthritis who initially presented with abdominal pain, nausea, and vomiting that started the prior night, and progressively worsened which led her to come to the ER. During her admission, she was treated for gastritis, and taken to the OR for laprascopic cholecystectomy for symptomatic cholethiasis. She tolerated the procedure well, but was weak afterwards. She was evaluated by physical therapy who recommended TCU for rehabilitation. Prior to discharge, she was noted to have transaminemia, which was improving on rechecking it. While in TCU patient had dialy physical therapy and regained strength and mobility. Patient decided she was ready to be discharged from TCU and was discharged where she will continue to go to her adult day care center where her medications are regulated. Case discussed with Dr. Nichols Discharge Exam - Head Exam Head Exam: ATRAUMATIC, NORMAL INSPECTION, NORMOCEPHALIC - Eye Exam Eye Exam: EOMI, Normal appearance - ENT Exam ENT Exam: Mucous Membranes Moist - Respiratory Exam Respiratory Exam: Clear to PA & Lateral, NORMAL BREATHING PATTERN, UNREMARKABLE. absent: Rhonchi, Wheezes - Cardiovascular Exam Cardiovascular Exam: REGULAR RHYTHM, +S1, +S2 - GI/Abdominal Exam GI & Abdominal Exam: Normal Bowel Sounds, Unremarkable - Extremities Exam Extremities exam: normal inspection - Back Exam Back exam: NORMAL INSPECTION - Neurological Exam Neurological exam: Alert, CN II-XII Intact, Oriented x3 - Psychiatric Exam Psychiatric exam: Normal Affect, Normal Mood - Skin Skin Exam: Normal Color, Warm Discharge Plan - Discharge Medications Prescriptions: Albuterol HFA [Ventolin HFA 90 mcg/actuation (8 g)] 2 puff IH [id number] PRN #120 puff PRN Reason: Wheezing Fluticasone/Salmeterol [Advair 250-50 Diskus] 1 each IH Q6H #1 blst.w.dev Rosuvastatin Calcium [Crestor] 20 mg PO QPM #14 tab - Follow Up Plan Condition: GOOD Disposition: HOME/ ROUTINE Instructions: Gallstones, Gallstones (DC), Acute Abdominal Pain (DC) Additional Instructions: Call to schedule follow up appointment with Dr. Esquivel in her office 1 week s/p discharge Do not lift >15 pounds for 4 weeks, use stool softeners if needed for constipation Referrals: Mika Esquivel MD [Staff Provider] - Yanet Patel DO [Primary Care Provider] - <Renetta Nichols - Last Filed: 02/28/18 15:44> Provider - Provider Date of Admission: 02/23/18 13:10 Attending physician: Renetta Nichols MD Primary care physician: Yanet Patel DO Hospital Course - Lab Results Lab Results: Most Recent Lab Values WBC 7.6 10^3/ul (4.5-11.0) 02/27/18 06:30 RBC 5.06 10^6/uL (3.5-6.1) 02/27/18 06:30 Hgb 14.3 g/dL (12.0-16.0) 02/27/18 06:30 Hct 42.9 % (36.0-48.0) 02/27/18 06:30 MCV 84.8 fl (80.0-105.0) 02/27/18 06:30 MCH 28.3 pg (25.0-35.0) 02/27/18 06:30 MCHC 33.3 g/dl (31.0-37.0) 02/27/18 06:30 RDW 12.7 % (11.5-14.5) 02/27/18 06:30 Plt Count 287 10^3/uL (120.0-450.0) 02/27/18 06:30 MPV 9.3 fl (7.0-11.0) 02/27/18 06:30 Gran % 51.9 % (50.0-68.0) 02/27/18 06:30 Lymph % (Auto) 38.3 % (22.0-35.0) H 02/27/18 06:30 York % (Auto) 6.5 % (1.0-6.0) H 02/27/18 06:30 Eos % (Auto) 3.0 % (1.5-5.0) 02/27/18 06:30 Baso % (Auto) 0.3 % (0.0-3.0) 02/27/18 06:30 Gran # 3.93 (1.4-6.5) 02/27/18 06:30 Lymph # (Auto) 2.9 (1.2-3.4) 02/27/18 06:30 York # (Auto) 0.5 (0.1-0.6) 02/27/18 06:30 Eos # (Auto) 0.2 (0.0-0.7) 02/27/18 06:30 Baso # (Auto) 0.02 K/mm3 (0.0-2.0) 02/27/18 06:30 Sodium 142 mmol/L (132-148) 02/27/18 06:30 Potassium 4.2 mmol/L (3.6-5.0) 02/27/18 06:30 Chloride 98 mmol/L (98-107) 02/27/18 06:30 Carbon Dioxide 32 mmol/L (21-33) 02/27/18 06:30 Anion Gap 16 (10-20) 02/27/18 06:30 BUN 18 mg/dL (7-21) 02/27/18 06:30 Creatinine 0.7 mg/dl (0.7-1.2) 02/27/18 06:30 Est GFR ( Amer) > 60 02/27/18 06:30 Est GFR (Non-Af Amer) > 60 02/27/18 06:30 Random Glucose 120 mg/dL (70-110) H 02/27/18 06:30 Calcium 9.7 mg/dL (8.4-10.5) 02/27/18 06:30 Total Bilirubin 0.6 mg/dL (0.2-1.3) 02/27/18 06:30 AST 41 U/L (14-36) H 02/27/18 06:30 ALT 53 U/L (7-56) 02/27/18 06:30 Alkaline Phosphatase 98 U/L (38-126) 02/27/18 06:30 Total Protein 7.8 g/dL (5.8-8.3) 02/27/18 06:30 Albumin 4.6 g/dL (3.0-4.8) 02/27/18 06:30 Globulin 3.2 gm/dL 02/27/18 06:30 Albumin/Globulin Ratio 1.4 (1.1-1.8) 02/27/18 06:30 Attending/Attestation - Attestation I have personally seen and examined this patient.: Yes I have fully participated in the care of the patient.: Yes I have reviewed all pertinent clinical information, including history, physical exam and plan: Yes Notes (Text): 02/28/18 15:43 Medical record note made by the resident after discussion with my direction and input after the patient was personally seen and examined by me. I have reviewed the chart and agree that the record accurately reflects by personal performance of the history, physical exam, data review, and medical decision-making, in the course for the patient. I have also personally directed the plan of care. 73 yrs old F with PMH of Galls tone,hyperlipidemia,asthma was admitted with biliary colic,underwent cholycystectomy and then was transfered ,in TCU for rehabilitation. Patient is ambulatory, tolerating diet .Asthma is stable.She will be discharged home and will follow up with PCP . Management plan was discussed in detail with patient. Education was provided. 02/28/18 15:44
== END 2018-02-28 13:31 | disposition home or self-care (01) | DRG 946 ==
LOC: TRCU 13:10
PROVIDERS: ADMIT Internal Medicine; ATTEND Internal Medicine
PROC: 3E0F7GC Introduction of Other Therapeutic Substance into Respiratory Tract, Via Natural or Artificial Opening (ICD-10-PCS; 2018-02-23)
PROC: F07Z9ZZ Gait Training/Functional Ambulation Treatment (ICD-10-PCS; principal; 2018-02-24)
PROC: F08Z4ZZ Home Management Treatment (ICD-10-PCS; 2018-02-24)
DX: R53.1 Weakness (principal); Z90.49 Acquired absence of other specified parts of digestive tract; K29.70 Gastritis, unspecified, without bleeding; J45.909 Unspecified asthma, uncomplicated; E78.5 Hyperlipidemia, unspecified; K44.9 Diaphragmatic hernia without obstruction or gangrene

== ENCOUNTER 2018-09-10 16:28 | Outpatient (CLI) | payer MEDICARE, OTHER | END 2018-09-10 16:29 | disposition home or self-care (01) | LOC: LAB 16:28 ==

== ENCOUNTER 2018-09-23 12:55 | Outpatient (CLI) | payer MEDICARE, OTHER | END 2018-09-23 12:56 | disposition home or self-care (01) | LOC: RAD 12:55 ==

== ENCOUNTER 2018-09-28 07:57 | Outpatient (CLI) | payer MEDICARE, OTHER | END 2018-09-28 07:58 | disposition home or self-care (01) | LOC: LAB 07:57 ==

== ENCOUNTER 2018-10-11 09:15 | Emergency (ER) | payer MEDICARE, OTHER ==
[2018-10-11 09:22] VITALS: BMI 25.6
[2018-10-11 09:27] VITALS: TEMP 98.5; O2SAT 95
[2018-10-11] MEDS ORDERED: Albuterol-Ipratrop 3 mg / 0.5 (3 ml) UD IH STA (09:33)
--- NOTE | 2018-10-11 09:33 | ED PDOC ---
Arrival/HPI - General Chief Complaint: Cough, Cold, Congestion Time Seen by Provider: 10/11/18 09:21 Historian: Patient - History of Present Illness Narrative History of Present Illness (Text): 10/11/18 09:30 A 73 year old female presents to the emergency department with a complaint of 4 day duration cough, sinus congestion and headache. Patient reports mild shortness of breath and chest pain with coughing. She reports feeling feverish and chills. The patient is a non-smoker/ non- drinker. She denies dizziness, dyspnea on exertion, abdominal pain, nausea, vomiting, diarrhea, back pain, neck pain, urinary/bowel changes, or any other complaint. Time/Duration: Other (4 days) Symptom Onset: Sudden Symptom Course: Unchanged Activities at Onset: Rest, Light Context: Home Associated Symptoms (Text): 10/11/18 09:44 Cough congestion URI headache shortness of breath feeling feverish chills chest pain with cough wheezing for the last 4 days. Past Medical History - Provider Review Nursing Documentation Reviewed: Yes - Infectious Disease Hx of Infectious Diseases: None - Tetanus Immunization Tetanus Immunization: Unknown - Cardiac Hx Cardiac Disorders: Yes - Pulmonary Hx Respiratory Disorders: Yes Hx Asthma: Yes - Neurological Hx Paralysis: No - HEENT Hx HEENT Disorder: No - Renal Hx Renal Disorder: No - Endocrine/Metabolic Hx Endocrine Disorders: No - Hematological/Oncological Hx Blood Transfusions: No - Integumentary Hx Dermatological Disorder: No - Musculoskeletal/Rheumatological Hx Arthritis: Yes - Gastrointestinal Hx Gastrointestinal Disorders: Yes (CHOLECYSTITIS,CHOLELITHIASIS POST LAP SEBLE,GASTRITIS,BILIARY COLIC,) - Genitourinary/Gynecological Hx Genitourinary Disorders: Yes (UTI) Hx Reproductive Disorders: No - Psychiatric Hx Emotional Abuse: No Hx Physical Abuse: No Hx Substance Use: No - Past Surgical History Past Surgical History: Non-Contributing - Surgical History Other/Comment: laser sx r eye - Anesthesia Hx Anesthesia Reactions: No Hx Malignant Hyperthermia: No - Suicidal Assessment Feels Threatened In Home Enviroment: No Family/Social History - Physician Review Nursing Documentation Reviewed: Yes Family/Social History: No Known Family HX Smoking Status: Never Smoked Hx Alcohol Use: No Hx Substance Use: No Hx Substance Use Treatment: No Allergies/Home Meds Allergies/Adverse Reactions: Allergies UNKNOWN ANTIBIOTICS Allergy (Uncoded 02/23/18 13:55) REDNESS FACE GETS RED Home Medications: Home Meds Medication Instructions Recorded Confirmed Fluticasone/Vilanterol 100/25 1 puff IH DAILY 10/11/18 10/11/18 [Breo Ellipta 100-25 MCG INH] Timolol 0.5% Ophth [Timoptic 0.5% 1 drop BOTHEYES DAILY 10/11/18 10/11/18 Ophth Soln] Review of Systems - Physician Review All systems were reviewed & negative as marked: Yes - Review of Systems Constitutional: Fatigue, Fevers ENT: Sinus Congestion Respiratory: SOB, Cough, Wheezing. absent: Sputum Cardiovascular: Chest Pain. absent: Palpitations, REED, Syncope Gastrointestinal: absent: Abdominal Pain, Stool Changes, Diarrhea, Nausea, Vomiting Genitourinary Female: absent: Urine Output Changes Musculoskeletal: absent: Back Pain, Neck Pain Neurological: Headache. absent: Dizziness, Focal Weakness Physical Exam Vital Signs Reviewed: Yes Vital Signs Temp Pulse Resp BP Pulse Ox 10/11/18 09:26 98.5 F 92 H 19 150/86 95 Temperature: Afebrile Blood Pressure: Normal Pulse: Regular Respiratory Rate: Normal Appearance: Positive for: Well-Appearing, Non-Toxic, Comfortable Pain Distress: None Mental Status: Positive for: Alert and Oriented X 3 - Systems Exam Head: Present: Atraumatic, Normocephalic Pupils: Present: PERRL Extroacular Muscles: Present: EOMI Conjunctiva: Present: Normal Ears: Present: NORMAL TM, Normal Canal. No: Erythema, TM Bulging Mouth: Present: Moist Mucous Membranes Pharnyx: Present: ERYTHEMA. No: EXUDATE, TONSILS ENLARGED Neck: Present: Normal Range of Motion Respiratory/Chest: Present: Good Air Exchange, Wheezes (mild bilateral wheezing ), Decreased Breath Sounds, Rhonchi (mild bilateral rhonchi), Other (Non- productive cough. ). No: Respiratory Distress, Accessory Muscle Use, Rales, Retracting, Tachypneic, Tender to Palpation Cardiovascular: Present: Regular Rate and Rhythm, Normal S1, S2. No: Murmurs Abdomen: No: Tenderness, Distention, Peritoneal Signs Back: Present: Normal Inspection Upper Extremity: Present: Normal Inspection. No: Cyanosis, Edema Lower Extremity: Present: Normal Inspection. No: Edema Neurological: Present: GCS=15, CN II-XII Intact, Speech Normal, Motor Func Grossly Intact Skin: Present: Warm, Dry, Normal Color. No: Rashes Psychiatric: Present: Alert, Oriented x 3, Normal Insight, Normal Concentration Medical Decision Making ED Course and Treatment: 10/11/18 09:33 Impression: A 73 year old female presents to the emergency department with a complaint of cough, sinus congestion, headache. Plan: -- EKG -- Chest X-ray -- Labs -- Duoneb -- Reassess and disposition Prior Visits: Notes and results from previous visits were reviewed. Progress Notes: 10/11/18 09:45 EKG shows normal sinus rhythm rate approximately [address] or T-wave changes. 10/11/18 10:41 Workup is unremarkable. Patient will be treated as bronchitis. Discharge home to follow-up with PMD. Follow up in ER as needed. Chest X-ray Dictator : Keaton Smallwood MD Report Date : 10/11/2018 11:09:12 IMPRESSION: No active disease. - Lab Interpretations I have reviewed the lab results: Yes - Scribe Statement The provider has reviewed the documentation as recorded by the Duncanibayaz Vinson Provider Scribe Attestation: All medical record entries made by the Scribe were at my direction and personally dictated by me. I have reviewed the chart and agree that the record accurately reflects my personal performance of the history, physical exam, medical decision making, and the department course for this patient. I have also personally directed, reviewed, and agree with the discharge instructions and disposition. Disposition/Present on Arrival - Present on Arrival Any Indicators Present on Arrival: No History of DVT/PE: No History of Uncontrolled Diabetes: No Urinary Catheter: No History of Decub. Ulcer: No History Surgical Site Infection Following: None - Disposition Have Diagnosis and Disposition been Completed?: Yes Diagnosis: Bronchitis Disposition: HOME/ ROUTINE Disposition Time: 10:42 Patient Plan: Discharge Patient Problems: Current Active Problems Problem Status Onset Bronchitis Acute Condition: GOOD Discharge Instructions (ExitCare): Acute Bronchitis Additional Instructions: Symptomatic treatment. Tylenol or Advil as directed on bottle as needed. Follow- up with PMD. Follow up in ER as needed. Prescriptions: Amoxicillin/Clavulanate [Augmentin 875 MG-125 MG] 1 tab PO Q12 #20 tab Benzonatate [Tessalon Perles] 100 mg PO Q8 #30 sgl Albuterol HFA [Ventolin HFA 90 mcg/actuation (8 g)] 2 puff IH [id number] #1 puff Forms: [employer] (Amharic)
[2018-10-11 09:58] LABS: BASO # 0.02 K/mm3 (0.0-2.0); BASO % 0.4 % (0.0-3.0); EOS % 0.8 % (1.5-5.0); HEMOGLOBIN 13.8 g/dL (12.0-16.0); LYMPH # 1.4 (1.2-3.4); LYMPH % 27.9 % (22.0-35.0); MEAN CELL VOLUME 84.7 fl (80.0-105.0); MEAN CORPUSCULAR HEMOGLOBIN 28.1 pg (25.0-35.0); MEAN CORPUSCULAR HGB CONC 33.2 g/dl (31.0-37.0); MEAN PLATELET VOLUME 9.6 fl (7.0-11.0); MONO # 0.4 (0.1-0.6); MONO % 8.8 % (1.0-6.0); RBC 4.91 10^6/uL (3.5-6.1); RED CELL DISTRIBUTION WIDTH 13.5 % (11.5-14.5); WHITE BLOOD COUNT 4.9 10^3/uL (4.5-11.0)
[2018-10-11 10:09] LABS: ALB/GLOB RATIO 1.6 (1.1-1.8); ALBUMIN 4.4 g/dL (3.0-4.8); ALT/SGPT 24 U/L (7-56); AST/SGOT 24 U/L (14-36); BLOOD UREA NITROGEN 10 mg/dL (7-21); CALCIUM 9.7 mg/dL (8.4-10.5); GFR NON-AFRICAN AMERICAN > 60
[2018-10-11 10:21] LABS: TROPONIN I < 0.01 ng/mL
[2018-10-11 10:26] LABS: INFLUENZA A B NEGATIVE FOR FLU A/B (NEGATIVE)
--- NOTE | 2018-10-11 11:12 | RAD ---
Date of service: 10/11/2018 HISTORY: cough COMPARISON: 02/20/2018 TECHNIQUE: Chest PA and lateral FINDINGS: LUNGS: No active pulmonary disease. PLEURA: No significant pleural effusion identified. No pneumothorax apparent. CARDIOVASCULAR: Aortic calcification Normal cardiac size. No pulmonary vascular congestion. OSSEOUS STRUCTURES: No significant abnormalities. VISUALIZED UPPER ABDOMEN: Normal. OTHER FINDINGS: None. IMPRESSION: No active disease.
[2018-10-11 11:39] VITALS: BP 131/75; PULSE 99; RESP 18
--- NOTE | 2018-10-11 23:11 | CARD ---
APPROVED REPORT Date of service: 10/11/2018 EKG Measurement Heart [id number] <Conclusion> Poor data quality, interpretation may be adversely affected Normal sinus rhythm Normal ECG
== END 2018-10-11 11:20 | disposition home or self-care (01) ==
LOC: ED 09:15
DX: J40 Bronchitis, not specified as acute or chronic (principal)

== ENCOUNTER 2018-11-11 10:15 | Day surgery (SDC) | payer MEDICARE, OTHER ==
[2018-11-11 11:16] VITALS: TEMP 98
[2018-11-11] MEDS ORDERED: Propofol 10 mg/ml Inj (20 ML) ONE (12:36)
[2018-11-11] MEDS ORDERED: Sodium Chloride 0.9% 1,000 ML IV SCH (13:00)
[2018-11-11 13:41] VITALS: RESP 16
[2018-11-11 15:30] VITALS: BP 129/75; PULSE 74; O2SAT 96
== END 2018-11-11 15:05 | disposition home or self-care (01) ==
LOC: ENDO 10:15
PROVIDERS: ATTEND Internal Medicine Gastroenterology
DX: K29.70 Gastritis, unspecified, without bleeding (principal); K44.9 Diaphragmatic hernia without obstruction or gangrene; E78.5 Hyperlipidemia, unspecified; Z90.49 Acquired absence of other specified parts of digestive tract; J45.909 Unspecified asthma, uncomplicated; E78.00 Pure hypercholesterolemia, unspecified; Z86.010 Personal history of colon polyps; D18.09 Hemangioma of other sites; R10.13 Epigastric pain; H40.9 Unspecified glaucoma; M19.90 Unspecified osteoarthritis, unspecified site
CPT/HCPCS: 43239; 82948; 88305; 88312; 88342; J2001; J2704; J7030; J7040

== ENCOUNTER 2018-11-28 08:33 | Outpatient (CLI) | payer MEDICARE, OTHER | END 2018-11-28 08:34 | disposition home or self-care (01) | LOC: LAB 08:33 ==

== ENCOUNTER 2018-12-26 08:22 | Outpatient (CLI) | payer MEDICARE, OTHER | END 2018-12-26 08:23 | disposition home or self-care (01) | LOC: RAD 08:22 | DX: R10.13 Epigastric pain (principal) ==

== ENCOUNTER 2019-01-01 08:20 | Outpatient (CLI) | payer MEDICARE, OTHER | END 2019-01-01 08:21 | disposition home or self-care (01) | LOC: LAB 08:20 ==